=== PATIENT | female | born 1955 | race Caucasian/White ===

== ENCOUNTER 2019-09-15 16:15 | Observation (INO) ==
--- NOTE | 2019-09-15 16:33 | ED.ABDFE ---
HPI - HPI Comment HPI Comment: Patient complains of abdominal pain starting yesterday. Has had diarrhea intermittent for a year with no etiology (DR. Crane Scoped patient upper and lower). NO fever. pain is RLQ. - COVID-19 Coronavirus risk:travel/contact w/high risk person: No Has patient experienced Coronavirus symptoms: No - Nurses notes reviewed Nurses Notes Review: Yes - Source History Provided: Patient - Mode of arrival Mode of Arrival: Ambulatory - Timing Came on: Gradually - Duration Duration: Intermittent Duration: Hours - Location Location: RLQ - Severity Severity: Moderate - Quality Quality: Aching - Context Onset: Gradually - Modifying Worsening Factors: Food - Associated signs and symptoms Associated Signs and Symptoms: Diarrhea - Time seen Time Seen by Provider: 09/15/19 16:32 PMH - PMH Past Medical History: Coronary Artery Disease, Hypertension, Dyslipidemia, Anxiety, COPD, Asthma, Kidney Stones Past Surgical History: Yes Surgical History: Angioplasty/Stents, Cholecystectomy, 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, Other, Thyroidectomy - Family History Family Medical History: Coronary Artery Disease, Hypertension - Social History Do you use any recreational Drugs:: No ROS - Review of Systems Constitutional: No Symptoms Reported Eyes: No Symptoms Reported ENTM: No Symptoms Reported Respiratoy: No Symptoms Reported Cardiovascular: No Symptoms Reported Gastrointestinal/Abdominal: Abdominal Pain (RLQ), Diarrhea Genitourinary: No Symptoms Reported Neurological: No Symptoms Reported Musculoskeletal: No Symptoms Reported Integumentary: No Symptoms Reported Hematologic/Lymphatic: No Symptoms Reported Endocrine: No Symptoms Reported Psychiatric: No Symptoms Reported All Other Systems: Reviewed and Negative PE - General Limitations: No Limitations General Appearance: Alert, In No Apparent Distress - Head Head Exam: Normal Inspection - Eyes Eye exam: Normal Appearance, EOMI - ENT ENT Exam: Normal Exam - Neck Neck Exam: Normal Inspection, Full ROM, Trachea Midline - Chest Chest Inspection: Normal Inspection - Respiratory Respiratory Exam: negative: Respiratory Distress - Abdominal Exam Abdominal Exam: Normal Inspection, Normal Bowel Sounds, Soft, Tenderness (RLQ mild tenderness). negative: Distention, Guarding - Vital Signs Vitals: Temperature 97.3 F Pulse Rate 79 Respiratory Rate 20 Blood Pressure 109/57 O2 Sat by Pulse Oximetry 99 Course - Consultation Called: 19:45 Call Returned: 19:46 Consultation Comments: called and case discussed, admit ROR - Labs Reviewed Result Diagrams: 09/15/19 16:55 09/15/19 16:55 - XRAY XRAY Interpreted by: Radiologist - EKG Rate: 52 [place]: Normal Rhythm: NSR Block: None Hypertrophy: None ST: Normal - Labs Reviewed Laboratory: WBC 12.1 X10^3/uL (3.6-10.0) H 09/15/19 16:55 RBC 4.02 X10^6/uL (3.5-5.4) 09/15/19 16:55 Hgb 11.8 g/dL (12.0-16.0) L 09/15/19 16:55 Hct 36.0 % (36.0-47.0) 09/15/19 16:55 MCV 89.5 fL (80.0-100.0) 09/15/19 16:55 MCH 29.2 pg (27.0-34.0) 09/15/19 16:55 MCHC 32.7 g/dL (33.0-35.0) L 09/15/19 16:55 RDW 13.6 % (11.6-16.5) 09/15/19 16:55 Plt Count 180 X10^3/uL (150.0-450.0) 09/15/19 16:55 MPV 8.7 fL (7.4-11.0) 09/15/19 16:55 Neut % (Auto) 89.2 % (42.0-75.0) H 09/15/19 16:55 Lymph % (Auto) 5.0 % (21.0-51.0) L 09/15/19 16:55 [place] % (Auto) 5.7 % (0.0-13.0) 09/15/19 16:55 Eos % (Auto) 0.0 % (0.9-2.9) L 09/15/19 16:55 Baso % (Auto) 0.1 % (0.2-1.0) L 09/15/19 16:55 Neut # (Auto) 10.8 x10^3/uL (2.2-4.8) H 09/15/19 16:55 Lymph # (Auto) 0.6 X10^3/uL (1.3-2.9) L 09/15/19 16:55 [place] # (Auto) 0.7 x10^3/uL (0.3-0.8) 09/15/19 16:55 Eos # (Auto) 0.0 x10^3/uL (0.0-0.2) 09/15/19 16:55 Baso # (Auto) 0.0 X10^3/uL (0.0-0.1) 09/15/19 16:55 Absolute Nucleated RBC 0.0 /100WBC 09/15/19 16:55 Sodium 141 mmol/L (136-145) 09/15/19 16:55 Corrected Sodium 142 mmol/L (136-145) 09/15/19 16:55 Potassium 4.0 mmol/L (3.5-5.1) 09/15/19 16:55 Chloride 104 mmol/L (98-107) 09/15/19 16:55 Carbon Dioxide 26.8 mmol/L (21-32) 09/15/19 16:55 BUN 16 mg/dL (7-18) 09/15/19 16:55 Creatinine 1.11 mg/dL (0.55-1.02) H 09/15/19 16:55 Est GFR (MDRD) Af Amer > 60 (>60) 09/15/19 16:55 Est GFR (MDRD) Non-Af 53 (>60) L 09/15/19 16:55 Glucose 125 mg/dL (65-99) H 09/15/19 16:55 Calcium 8.5 mg/dL (8.5-10.1) 09/15/19 16:55 Corrected Calcium TNP 09/15/19 16:55 Total Bilirubin 0.60 mg/dL (0.2-1.0) 09/15/19 16:55 AST 33 Units/L (15-37) 09/15/19 16:55 ALT 28 Units/L (12-78) 09/15/19 16:55 Alkaline Phosphatase 80 Units/L (46-116) 09/15/19 16:55 Total Protein 6.9 g/dL (6.4-8.2) 09/15/19 16:55 Albumin 3.8 g/dL (3.4-5.0) 09/15/19 16:55 Globulin 3.1 g/dL (2.5-4.5) 09/15/19 16:55 Albumin/Globulin Ratio 1.2 Ratio (1.1-2.1) 09/15/19 16:55 Lipase 35 Units/L (73-393) L 09/15/19 16:55 Stool for White Cells Negative (NEGATIVE) 09/15/19 17:42 - XRAY Xray Findings: CT ABDO/PELVIS: acute appendicitis (JJ COLEMAN) Opioid - Opioid Risk Tool Age (Jj box if 16-45): No History of Preadolescent Sexual Abuse: No Total: 0 Total Score Risk Category: Low Risk - Diagnosis Discharge Problem: Abdominal pain Qualifiers: Abdominal location: right lower quadrant Qualified Code(s): R10.31 - Right lower quadrant pain Diarrhea Qualifiers: Diarrhea type: unspecified type Qualified Code(s): R19.7 - Diarrhea, unspecified Appendicitis Qualifiers: Appendicitis type: acute appendicitis Acute appendicitis type: unspecified acute appendicitis type Qualified Code(s): K35.80 - Unspecified acute appendicitis - Discharge Plan Condition: Stable
[2019-09-15 17:03] LABS: BASOPHILS % (AUTO) 0.1 % (0.2-1.0); HEMOGLOBIN 11.8 g/dL (12.0-16.0); LYMPHOCYTES # (AUTO) 0.6 X10^3/uL (1.3-2.9); MEAN CORPUSCULAR HEMOGLOBIN 29.2 pg (27.0-34.0); MEAN CORPUSCULAR HGB CONC 32.7 g/dL (33.0-35.0); MEAN CORPUSCULAR VOLUME 89.5 fL (80.0-100.0); MEAN PLATELET VOLUME 8.7 fL (7.4-11.0); MONOCYTES # (AUTO) 0.7 x10^3/uL (0.3-0.8); MONOCYTES % (AUTO) 5.7 % (0.0-13.0); NEUTROPHILS # (AUTO) 10.8 x10^3/uL (2.2-4.8); NEUTROPHILS % (AUTO) 89.2 % (42.0-75.0); PLATELET COUNT 180 X10^3/uL (150.0-450.0); RED BLOOD COUNT 4.02 X10^6/uL (3.5-5.4); RED CELL DISTRIBUTION WIDTH 13.6 % (11.6-16.5); WHITE BLOOD COUNT 12.1 X10^3/uL (3.6-10.0)
[2019-09-15] MEDS ORDERED: NS 500 ML IV 500 ML IV ONE (17:03)
[2019-09-15] MEDS ORDERED: ZOFRAN INJ 4 MG VIAL IVP ONE (17:12)
[2019-09-15] MEDS ORDERED: TORADOL 60 MG VIAL IVP ONE (17:12)
[2019-09-15 17:14] LABS: ALANINE AMINOTRANSFERASE 28 Units/L (12-78); ALBUMIN 3.8 g/dL (3.4-5.0); ALKALINE PHOSPHATASE 80 Units/L (46-116); ASPARTATE AMINO TRANSFERASE 33 Units/L (15-37); BLOOD UREA NITROGEN 16 mg/dL (7-18); CALCIUM 8.5 mg/dL (8.5-10.1); CARBON DIOXIDE 26.8 mmol/L (21-32); CHLORIDE 104 mmol/L (98-107); COR NA(FOR HYPERGLY) 142 mmol/L (136-145); CREATININE 1.11 mg/dL (0.55-1.02); LIPASE 35 Units/L (73-393); SODIUM 141 mmol/L (136-145); TOTAL PROTEIN 6.9 g/dL (6.4-8.2); eGFR NON BLACK RACES 53 (>60)
[2019-09-15] MEDS ORDERED: NS 1000 ML 1,000 ML ONE (17:18)
[2019-09-15] MEDS ORDERED: TORADOL 60 MG VIAL ONE (17:19)
[2019-09-15] MEDS ORDERED: ZOFRAN INJ 4 MG VIAL ONE (17:19)
--- NOTE | 2019-09-15 19:46 | CT ---
History: Abdominal pain.Exam: Non-contrast CT examination of the abdomen & pelvis.Technique: Multiple CT images of the abdomen and pelvis were obtained from the lung bases to the pubic symphysis without the IV administration of contrast. Of note, this CT exam was optimized for renal stone disease and some parenchymal organ abnormalities and vascular abnormalities/injuries cannot be excluded on the basis of this CT exam.Findings:The lung bases are clear. There is a small hiatal hernia. The no heart is normal in size without a pericardial effusion. Noncontrast CT images of the liver, spleen, stomach, and adrenal glands are unremarkable appearance. There is a nonobstructing left inferior pole 6 mm renal stone. The gallbladder is surgically absent. There is a nonobstructing right inferior pole 2 mm renal stone. There is a moderate to large quantity of colonic stool observed. The cecum is in a somewhat unusual location in the mid/lower abdomen on images 11 through 23 of series 5. Additionally, the appendix is abnormally dilated and there is diffuse periappendiceal edema and stranding which extends to involve the base of the cecum, consistent with changes of acute appendicitis. No periappendiceal abscess or fluid collection is seen. There is no evidence for high-grade bowel obstruction or other complicating features. No other acute abdominopelvic abnormality or process is seen, given the limitations of this noncontrast study. No acute fracture or destructive lytic bony lesion is observed. I discussed these findings with the ER physician/ND at the time of this report.Impression:On this exam, the appendix is abnormally dilated (extending from the cecum, inferiorly) and there is diffuse periappendiceal edema and stranding which extends to involve the base of the cecum, consistent with changes of acute appendicitis.The cecum and appendix are in a somewhat atypical location in the midline/lower abdomen on images 11 - 23 of series 5.No periappendiceal abscess or fluid collection is seen. No evidence for high-grade bowel obstruction or other complicating features.Nonobstructing bilateral nephrolithiasis. Small hiatal hernia. Status post cholecystectomy. Moderate amount of stool.Electronically signed by: ELOINA JORDAN III (Sep 15, 2019 19:45:12)
[2019-09-15] MEDS ORDERED: DEMEROL INJ IVP PRN (20:01)
[2019-09-15] MEDS: NS 1000 ML 1,000 ML IV SCH (20:55)
[2019-09-15] MEDS ORDERED: DUONEB 0.5 MG/3 MG (3 mL) NEB PRN (21:17)
[2019-09-15] MEDS ORDERED: NS 100 ML IV 100 ML IV ONE (21:58)
[2019-09-15] MEDS ORDERED: ZOSYN VIAL 3.375 GRAMS IV ONE (21:58)
[2019-09-15] MEDS: ZOSYN VIAL 3.375 GRAMS 3.375 G in NS 100 ML IV + SPIKE MINIBAG* 100 ML IV ONE ×2 (22:07→22:08)
[2019-09-16 00:32] LABS: BILIRUBIN,URINE NEGATIVE (NEGATIVE); BLOOD/HEMOGLOBIN,URINE 1+ (NEGATIVE); GLUCOSE, URINE NEGATIVE (NEGATIVE); KETONES,URINE NEGATIVE (NEGATIVE); LEUKOCYTE ESTERASE ,URINE 3+ (NEGATIVE); NITRITES,URINE NEGATIVE (NEGATIVE); PROTEIN,URINE NEGATIVE (NEGATIVE); UROBILINOGEN,URINE NORMAL (NORMAL)
[2019-09-16 00:43] LABS: APPEARANCE,URINE HAZY (CLEAR); COLOR,URINE YELLOW (YELLOW)
[2019-09-16 00:44] LABS: BACTERIA,URINE NEGATIVE /HPF (NEGATIVE); RBC,URINE 0-2 /HPF (0-3); SQUAMOUS EPITHELIAL CELL,UR RARE /HPF (NEGATIVE)
[2019-09-16 03:01] VITALS: BMI 35.9
[2019-09-16] MEDS ORDERED: NS 100 ML IV 100 ML IV ONE ×2 (05:17→16:05)
[2019-09-16] MEDS ORDERED: ZOSYN VIAL 3.375 GRAMS IV ONE ×2 (05:18→15:51)
[2019-09-16] MEDS: ZOSYN VIAL 3.375 GRAMS 3.375 G in NS 100 ML IV + SPIKE MINIBAG* 100 ML IV SCH ×3 (05:47→21:05)
[2019-09-16 06:44] LABS: BASOPHILS % (AUTO) 0.2 % (0.2-1.0); EOSINOPHILS % (AUTO) 0.8 % (0.9-2.9); HEMATOCRIT 31.8 % (36.0-47.0); HEMOGLOBIN 10.6 g/dL (12.0-16.0); LYMPHOCYTES # (AUTO) 1.2 X10^3/uL (1.3-2.9); LYMPHOCYTES % (AUTO) 18.9 % (21.0-51.0); MEAN CORPUSCULAR HEMOGLOBIN 29.8 pg (27.0-34.0); MEAN CORPUSCULAR HGB CONC 33.4 g/dL (33.0-35.0); MEAN CORPUSCULAR VOLUME 89.3 fL (80.0-100.0); MONOCYTES # (AUTO) 0.4 x10^3/uL (0.3-0.8); NEUTROPHILS # (AUTO) 4.5 x10^3/uL (2.2-4.8); NEUTROPHILS % (AUTO) 73.1 % (42.0-75.0); PLATELET COUNT 126 X10^3/uL (150.0-450.0); RED BLOOD COUNT 3.56 X10^6/uL (3.5-5.4); RED CELL DISTRIBUTION WIDTH 13.4 % (11.6-16.5); WHITE BLOOD COUNT 6.2 X10^3/uL (3.6-10.0)
[2019-09-16 07:04] LABS: ALANINE AMINOTRANSFERASE 23 Units/L (12-78); ALBUMIN 3.2 g/dL (3.4-5.0); ALKALINE PHOSPHATASE 70 Units/L (46-116); ASPARTATE AMINO TRANSFERASE 21 Units/L (15-37); BLOOD UREA NITROGEN 17 mg/dL (7-18); CALCIUM 8.4 mg/dL (8.5-10.1); CARBON DIOXIDE 26.6 mmol/L (21-32); CHLORIDE 107 mmol/L (98-107); CREATININE 1.02 mg/dL (0.55-1.02); SODIUM 141 mmol/L (136-145); TOTAL PROTEIN 6.2 g/dL (6.4-8.2); eGFR NON BLACK RACES 58 (>60)
[2019-09-16] MEDS ORDERED: FENTANYL INJ 250 mcg ONE (09:39)
[2019-09-16] MEDS ORDERED: NORCURON INJ 10 MG VIAL ONE ×2 (09:41→09:43)
[2019-09-16] MEDS ORDERED: BENADRYL INJ 50 MG VIAL IVP PRN (09:54)
[2019-09-16] MEDS ORDERED: ZOFRAN INJ 4 MG VIAL IVP PRN (09:54)
[2019-09-16] MEDS ORDERED: PHENERGAN INJ 25 MG IM PRN (09:54)
[2019-09-16] MEDS ORDERED: REGLAN INJ 10 MG VIAL IVP PRN (09:54)
--- NOTE | 2019-09-16 10:04 | DR.H&P ---
H&P - History & Physical for Day of: H&P Date: 09/15/19 - Chief Complaint Chief Complaint: RIGHT LOWER ABDOMINAL PAIN, N/V - History of Present Illness History of Present Illness: 64 WF ER ADMISSION WITH CO SUDDEN ONSET OF RIGHT LOWER ABDOMINAL PAIN WITH N/V, MARKED TENDERNESS. PT CO LOOSE STOOL FOR GREATER THAN 6 MOS, UNDER CARE OF DR REYES WITH UP TO DAY EGD AND COLONOSCOPY. PT HAS PMH OF CAD, STENT X1 ~5YEARS AGO. PT SEES DR GROSS AND REPORTS ECHO IN MAY WITH EF >60%, RECENT STRESS TEST WITHOUT NEED FOR HEART CATH. PT DENIES ANY HX OF DM. 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, Thyroidectomy, Lithotripsy - Family History Family Medical History: Coronary Artery Disease, Hypertension - Social History Does patient currently use any type of tobacco product: No Have you used tobacco products in the last 12 months: No Type of Tobacco Use: None Does any household member use tobacco: No Alcohol Use: None Drug Use: None - Medications Home Medications: atorvastatin [From Lipitor] Allergy (Verified 09/15/19 20:57) budesonide [From Symbicort] Allergy (Verified 09/15/19 20:57) ciprofloxacin [From Cipro] Allergy (Verified 09/15/19 16:24) formoterol [From Symbicort] Allergy (Verified 09/15/19 20:57) shellfish derived Allergy (Verified 09/15/19 19:13) Sulfa (Sulfonamide Antibiotics) [SULFA] Allergy (Verified 09/15/19 16:24) CONTINUE taking the following medications aspirin [Aspir-Low] 81 mg PO DAILY 09/15/19 [History] citalopram 20 mg PO DAILY 09/15/19 [History] clopidogrel 75 mg PO DAILY 09/15/19 [History] docusate sodium [Colace] 200 mg PO BID PRN 09/15/19 [History] epinephrine [EpiPen 2-Isidoro] 0.3 mg IM Q5-15M PRN 09/15/19 [History] ferrous sulfate 325 mg PO TID 09/15/19 [History] gabapentin 600 mg PO BID 09/15/19 [History] hydrocodone-acetaminophen 1 tab PO Q6H PRN 09/15/19 [History] ipratropium-albuterol 3 ml INHALATION Q4H PRN 09/15/19 [History] isosorbide dinitrate 40 mg PO BID 09/15/19 [History] levothyroxine [Synthroid] 75 mcg PO DAILY 09/15/19 [History] lisinopril 5 mg PO DAILY 09/15/19 [History] loratadine 10 mg PO DAILY 09/15/19 [History] metoprolol tartrate 25 mg PO BID 09/15/19 [History] naproxen 500 mg PO BID PRN 09/15/19 [History] nitroglycerin 0.4 mg SUBLINGUAL PRN PRN 09/15/19 [History] ondansetron 8 mg PO Q8H 09/15/19 [History] pantoprazole 40 mg PO DAILY 09/15/19 [History] ranitidine HCl 300 mg PO QHS 09/15/19 [History] simvastatin 40 mg PO QHS 09/15/19 [History] tizanidine 4 mg PO Q8H PRN 09/15/19 [History] topiramate 100 mg PO BID 09/15/19 [History] trazodone 100 mg PO QHS 09/15/19 [History] - Review of Systems Constitutional: No Symptoms Reported Eyes: No Symptoms Reported ENT: No Symptoms Reported Respiratory: No Symptoms Reported. denies: Cough, Shortness of Breath Gastrointestinal: Nausea, Vomiting, Abdominal Pain, Diarrhea Genitourinary: No Symptoms Reported Musculoskeletal: No Symptoms Reported Skin: No Symptoms Reported Neurological: No Symptoms Reported - Physical Exam Vital Signs: Temperature 98.5 F Pulse Rate [Left Brachial] 66 Pulse Rate 50 Respiratory Rate 18 Blood Pressure [Right Arm] 134/61 Blood Pressure [Left Arm] 105/72 Blood Pressure 105/63 O2 Sat by Pulse Oximetry 98 Oriented: Normal Eyes: Normal Ear: Normal Nose: Normal Throat: Normal Respiratory: Clear Throughout Cardiovascular: Normal : Normal Auscultation: Bowel Sounds: Normal Palpation: Normal Tenderness: RLQ, Severe Skin: Normal Musculoskeletal: Normal Psychiatric: Normal Speech Pattern: Clear, Appropriate - Assessment/Plan (1) Acute appendicitis Status: Acute Plan: ADMIT, NPO. PAIN CONTROL, IV ATBX, SURGICAL CONSULT. EKG, CXR FOR SURGICAL CLEARANCE. OBTAIN LAST ECHO REPORT FROM MAY 2019 (2) Chronic diarrhea Status: Acute (3) CAD (coronary artery disease) Status: Acute - Allergies Allergies/Adverse Reactions: Allergies Allergy/AdvReac Type Severity Reaction Status Date / Time atorvastatin [From Lipitor] Allergy Verified 09/15/19 20:57 budesonide [From Symbicort] Allergy Verified 09/15/19 20:57 ciprofloxacin [From Cipro] Allergy Verified 09/15/19 16:24 formoterol [From Symbicort] Allergy Verified 09/15/19 20:57 shellfish derived Allergy Verified 09/15/19 19:13 Sulfa (Sulfonamide Allergy Verified 09/15/19 16:24 Antibiotics) [SULFA]
--- NOTE | 2019-09-16 10:09 | PCM.PROG ---
Progress Note - Progress Note for Day of Date of Exam: 09/16/19 - Subjective Subjective: PT IS 64 WF, ER ADMISSION LAST PM WITH ACUTE APPENDICITIS WITH DR HINES FOR SURGICAL CONSULT. PT CONTINUE TO HAVE REBOUND TENDERNESS. PT HAD EKG AND CXR THIS AM, ECHO REVIEWED. PT IS MEDICALLY CLEAR FOR APPENDECTOMY THIS AM. PT WBC IMPROVING TO 6.1, HGB STABLE. WILL CONTINUE NPO STATUS - Past Medical Family Social History Past Med/Fam/Surg Hx: No changes since H&P Allergies: Allergies atorvastatin [From Lipitor] Allergy (Verified 09/15/19 20:57) budesonide [From Symbicort] Allergy (Verified 09/15/19 20:57) ciprofloxacin [From Cipro] Allergy (Verified 09/15/19 16:24) formoterol [From Symbicort] Allergy (Verified 09/15/19 20:57) shellfish derived Allergy (Verified 09/15/19 19:13) Sulfa (Sulfonamide Antibiotics) [SULFA] Allergy (Verified 09/15/19 16:24) - Review of Systems ROS: No change since H&P - Vital Signs and I&O's Vital Signs: Temperature 98.5 F Pulse Rate [Left Brachial] 66 Pulse Rate 50 Respiratory Rate 18 Blood Pressure [Right Arm] 134/61 Blood Pressure [Left Arm] 105/72 Blood Pressure 105/63 O2 Sat by Pulse Oximetry 98 Intake and Output: Intake & Output 09/13/19 09/14/19 09/15/19 09/16/19 11:59 11:59 11:59 11:59 Intake Total 590 / 590 Balance 590 / 590 - Physical Exam Oriented: Normal Eyes: Normal Ear: Normal Nose: Normal Throat: Normal Cardiovascular: Normal : Normal Auscultation: Bowel Sounds: Normal Tenderness: RLQ, Severe Skin: Normal Musculoskeletal: Normal Psychiatric: Normal Speech Pattern: Clear, Appropriate - Laboratory and Diagnostics Result Diagrams: 09/16/19 05:00 09/16/19 05:00 Labs: Laboratory WBC 6.2 X10^3/uL (3.6-10.0) 09/16/19 05:00 RBC 3.56 X10^6/uL (3.5-5.4) 09/16/19 05:00 Hgb 10.6 g/dL (12.0-16.0) L 09/16/19 05:00 Hct 31.8 % (36.0-47.0) L 09/16/19 05:00 MCV 89.3 fL (80.0-100.0) 09/16/19 05:00 MCH 29.8 pg (27.0-34.0) 09/16/19 05:00 MCHC 33.4 g/dL (33.0-35.0) 09/16/19 05:00 RDW 13.4 % (11.6-16.5) 09/16/19 05:00 Plt Count 126 X10^3/uL (150.0-450.0) L 09/16/19 05:00 MPV 9.0 fL (7.4-11.0) 09/16/19 05:00 Neut % (Auto) 73.1 % (42.0-75.0) 09/16/19 05:00 Lymph % (Auto) 18.9 % (21.0-51.0) L 09/16/19 05:00 [place] % (Auto) 7.0 % (0.0-13.0) 09/16/19 05:00 Eos % (Auto) 0.8 % (0.9-2.9) L 09/16/19 05:00 Baso % (Auto) 0.2 % (0.2-1.0) 09/16/19 05:00 Neut # (Auto) 4.5 x10^3/uL (2.2-4.8) 09/16/19 05:00 Lymph # (Auto) 1.2 X10^3/uL (1.3-2.9) L 09/16/19 05:00 [place] # (Auto) 0.4 x10^3/uL (0.3-0.8) 09/16/19 05:00 Eos # (Auto) 0.0 x10^3/uL (0.0-0.2) 09/16/19 05:00 Baso # (Auto) 0.0 X10^3/uL (0.0-0.1) 09/16/19 05:00 Absolute Nucleated RBC 0.0 /100WBC 09/16/19 05:00 Sodium 141 mmol/L (136-145) 09/16/19 05:00 Corrected Sodium TNP 09/16/19 05:00 Potassium 3.4 mmol/L (3.5-5.1) L 09/16/19 05:00 Chloride 107 mmol/L (98-107) 09/16/19 05:00 Carbon Dioxide 26.6 mmol/L (21-32) 09/16/19 05:00 BUN 17 mg/dL (7-18) 09/16/19 05:00 Creatinine 1.02 mg/dL (0.55-1.02) 09/16/19 05:00 Est GFR (MDRD) Af Amer > 60 (>60) 09/16/19 05:00 Est GFR (MDRD) Non-Af 58 (>60) L 09/16/19 05:00 Glucose 91 mg/dL (65-99) 09/16/19 05:00 Calcium 8.4 mg/dL (8.5-10.1) L 09/16/19 05:00 Corrected Calcium 9.0 mg/dL (8.5-10.1) 09/16/19 05:00 Total Bilirubin 1.00 mg/dL (0.2-1.0) 09/16/19 05:00 AST 21 Units/L (15-37) 09/16/19 05:00 ALT 23 Units/L (12-78) 09/16/19 05:00 Alkaline Phosphatase 70 Units/L (46-116) 09/16/19 05:00 Total Protein 6.2 g/dL (6.4-8.2) L 09/16/19 05:00 Albumin 3.2 g/dL (3.4-5.0) L 09/16/19 05:00 Globulin 3.0 g/dL (2.5-4.5) 09/16/19 05:00 Albumin/Globulin Ratio 1.1 Ratio (1.1-2.1) 09/16/19 05:00 Lipase 35 Units/L (73-393) L 09/15/19 16:55 Specimen Type Clean catch urine 09/16/19 00:07 Urine Color Yellow (YELLOW) 09/16/19 00:07 Urine Appearance Hazy (CLEAR) 09/16/19 00:07 Urine pH 6.0 (5.0 - 8.0) 09/16/19 00:07 Ur Specific [place] 1.010 (1.000-1.030) 09/16/19 00:07 Urine Protein Negative (NEGATIVE) 09/16/19 00:07 Urine Glucose (UA) Negative (NEGATIVE) 09/16/19 00:07 Urine Ketones Negative (NEGATIVE) 09/16/19 00:07 Urine Occult Blood 1+ (NEGATIVE) 09/16/19 00:07 Urine Nitrite Negative (NEGATIVE) 09/16/19 00:07 Urine Bilirubin Negative (NEGATIVE) 09/16/19 00:07 Urine Urobilinogen Normal (NORMAL) 09/16/19 00:07 Ur Leukocyte Esterase 3+ (NEGATIVE) 09/16/19 00:07 Urine RBC 0-2 /HPF (0-3) 09/16/19 00:07 Urine WBC 0-2 /HPF (0-5) 09/16/19 00:07 Ur Squamous Epith Cells Rare /HPF (NEGATIVE) 09/16/19 00:07 Urine Bacteria Negative /HPF (NEGATIVE) 09/16/19 00:07 Ur Culture Indicated? No/not indicated 09/16/19 00:07 Stool for White Cells Negative (NEGATIVE) 09/15/19 17:42 - Plan (1) Acute appendicitis Status: Acute Plan: NPO. PAIN CONTROL, IV ATBX, SURGICAL CONSULT. EKG, CXR FOR SURGICAL CLEARANCE. OBTAIN LAST ECHO REPORT FROM MAY 2019 AND REVIEWED WITH NORMAL EF (2) Chronic diarrhea Status: Acute (3) CAD (coronary artery disease) Status: Acute
[2019-09-16] MEDS ORDERED: DIPRIVAN VIAL ONE (10:58)
[2019-09-16] MEDS ORDERED: ZOFRAN INJ 4 MG VIAL ONE ×2 (10:58→11:30)
[2019-09-16] MEDS ORDERED: ZEMURON 100 MG VIAL ONE (10:58)
[2019-09-16] MEDS ORDERED: VERSED ONE (10:58)
[2019-09-16] MEDS ORDERED: BACTROBAN TOPICAL OINT ONE (11:05)
[2019-09-16] MEDS ORDERED: DILAUDID INJ ONE (11:30)
--- NOTE | 2019-09-16 11:30 | OR.IMMED ---
Immediate Post-Op Note - Immediate Post-Op Note Pre-Op Diagnosis: acute appendicitis Post-Op Diagnosis: acute appendicitis . 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 abdominal adhesions . Procedure: lap appendectomy . lysis of abdominal adhesions . Surgeon/Sewing Machine Mechanic: Franck Estimated Blood Loss: 20 cc Drains: NONE Condition: Stable (same IV ATB , IVF and DVT prophylaxis)
[2019-09-16] MEDS: DILAUDID INJ IVP PRN ×3 (11:35→18:10)
[2019-09-16] MEDS ORDERED: NS 1000 ML 1,000 ML ONE (11:46)
[2019-09-16] MEDS: NS 1000 ML 1,000 ML IV SCH (11:47)
[2019-09-16] MEDS: D5 1/2 NS 1000 ML 1,000 ML IV SCH ×2 (12:45→20:57)
--- NOTE | 2019-09-16 14:10 | RAD ---
HISTORYhx cad, htnSTUDYCHEST, 1 VIEWCOMPARISONNoneFINDINGSThe trachea is midline. The cardiac silhouette is enlarged. Interstitial changes and bronchial wall thickening are noted. Patchy left perihilar and left basilar infiltrate cannot be excluded. Correlate clinically.IMPRESSIONCardiomegaly.Interstitial changes with questionable patchy infiltrate within the left lung as noted above.Electronically signed by: MONICA TALAMANTES (Sep 16, 2019 14:09:20)
[2019-09-16] MEDS ORDERED: CHLORASEPTIC SPRAY MT PRN (16:00)
[2019-09-16] MEDS: PROTONIX INJ 40 MG VIAL IVP SCH (18:39)
[2019-09-17] MEDS: D5 1/2 NS 1000 ML 1,000 ML IV SCH ×2 (01:46→04:24)
[2019-09-17] MEDS ORDERED: NS 100 ML IV 100 ML IV ONE (05:27)
[2019-09-17] MEDS ORDERED: ZOSYN VIAL 3.375 GRAMS IV ONE (05:27)
[2019-09-17] MEDS: DILAUDID INJ IVP PRN (06:11)
[2019-09-17] MEDS: ZOSYN VIAL 3.375 GRAMS 3.375 G in NS 100 ML IV + SPIKE MINIBAG* 100 ML IV SCH (06:11)
[2019-09-17 06:32] LABS: BASOPHILS % (AUTO) 0.3 % (0.2-1.0); EOSINOPHILS # (AUTO) 0.1 x10^3/uL (0.0-0.2); EOSINOPHILS % (AUTO) 2.3 % (0.9-2.9); HEMATOCRIT 29.8 % (36.0-47.0); HEMOGLOBIN 10.2 g/dL (12.0-16.0); LYMPHOCYTES % (AUTO) 17.5 % (21.0-51.0); MEAN CORPUSCULAR HEMOGLOBIN 30.2 pg (27.0-34.0); MEAN CORPUSCULAR VOLUME 88.7 fL (80.0-100.0); MEAN PLATELET VOLUME 8.8 fL (7.4-11.0); MONOCYTES # (AUTO) 0.5 x10^3/uL (0.3-0.8); MONOCYTES % (AUTO) 8.7 % (0.0-13.0); NEUTROPHILS # (AUTO) 4.1 x10^3/uL (2.2-4.8); NEUTROPHILS % (AUTO) 71.2 % (42.0-75.0); PLATELET COUNT 125 X10^3/uL (150.0-450.0); RED BLOOD COUNT 3.36 X10^6/uL (3.5-5.4); RED CELL DISTRIBUTION WIDTH 13.4 % (11.6-16.5); WHITE BLOOD COUNT 5.7 X10^3/uL (3.6-10.0)
[2019-09-17 06:51] LABS: ALANINE AMINOTRANSFERASE 16 Units/L (12-78); ALBUMIN 2.9 g/dL (3.4-5.0); ALKALINE PHOSPHATASE 69 Units/L (46-116); ASPARTATE AMINO TRANSFERASE 14 Units/L (15-37); BLOOD UREA NITROGEN 12 mg/dL (7-18); CALCIUM 8.1 mg/dL (8.5-10.1); CARBON DIOXIDE 25.1 mmol/L (21-32); CHLORIDE 108 mmol/L (98-107); SODIUM 140 mmol/L (136-145); TOTAL PROTEIN 5.9 g/dL (6.4-8.2); eGFR NON BLACK RACES > 60 (>60)
[2019-09-17] MEDS ORDERED: LOVENOX INJ 40 MG SYR SC SCH (09:00)
[2019-09-17] MEDS: PROTONIX INJ 40 MG VIAL IVP SCH (09:07)
[2019-09-17 09:18] VITALS: BP 131/61
== END 2019-09-17 11:45 | disposition home or self-care (01) ==
LOC: MED/SURG 16:23 → ER 16:23 → MED/SURG 21:02
PROVIDERS: ADMIT Surgery; ATTEND Surgery
PROC: APPYLAP (ICD-10-PCS; 2019-09-16 09:45)
DX: K35.890 Other acute appendicitis without perforation or gangrene; I25.10 Atherosclerotic heart disease of native coronary artery without angina pectoris; R19.7 Diarrhea, unspecified; E78.2 Mixed hyperlipidemia; K21.9 Gastro-esophageal reflux disease without esophagitis; R10.31 Right lower quadrant pain; K44.9 Diaphragmatic hernia without obstruction or gangrene; D72.828 Other elevated white blood cell count; J44.9 Chronic obstructive pulmonary disease, unspecified; Z79.899 Other long term (current) drug therapy

== ENCOUNTER 2021-02-10 14:59 | Inpatient (IN) ==
[2021-02-10 16:27] VITALS: BMI 43.7
[2021-02-10] MEDS ORDERED: ZOFRAN INJ 4 MG VIAL IVP PRN (16:27)
[2021-02-10] MEDS ORDERED: NS 1000 ML 1,000 ML ONE (16:43)
[2021-02-10] MEDS ORDERED: NORCO 7.5/325 MG TAB ONE (16:43)
[2021-02-10] MEDS ORDERED: PLAVIX ONE (16:43)
[2021-02-10] MEDS ORDERED: CELEXA ONE (16:43)
[2021-02-10] MEDS ORDERED: PROTONIX INJ 40 MG VIAL ONE (16:44)
[2021-02-10 16:59] LABS: BASOPHILS % (AUTO) 0.3 % (0.2-1.0); EOSINOPHILS # (AUTO) 0.1 x10^3/uL (0.0-0.2); EOSINOPHILS % (AUTO) 1.4 % (0.9-2.9); HEMOGLOBIN 12.4 g/dL (12.0-16.0); LYMPHOCYTES # (AUTO) 0.9 X10^3/uL (1.3-2.9); LYMPHOCYTES % (AUTO) 10.3 % (21.0-51.0); MEAN CORPUSCULAR HEMOGLOBIN 28.8 pg (27.0-34.0); MEAN CORPUSCULAR HGB CONC 33.5 g/dL (33.0-35.0); MEAN CORPUSCULAR VOLUME 85.9 fL (80.0-100.0); MEAN PLATELET VOLUME 8.3 fL (7.4-11.0); MONOCYTES # (AUTO) 0.6 x10^3/uL (0.3-0.8); MONOCYTES % (AUTO) 7.2 % (0.0-13.0); NEUTROPHILS # (AUTO) 6.8 x10^3/uL (2.2-4.8); NEUTROPHILS % (AUTO) 80.8 % (42.0-75.0); PLATELET COUNT 208 X10^3/uL (150.0-450.0); RED BLOOD COUNT 4.31 X10^6/uL (3.5-5.4); WHITE BLOOD COUNT 8.4 X10^3/uL (3.6-10.0)
[2021-02-10] MEDS ORDERED: PHARMACY CONSULT - VANCOMYCIN XX SCH (17:00)
[2021-02-10 17:02] LABS: ERYTHROCYTE SEDIMENTATION RATE 82 MM/HOUR (0-20)
[2021-02-10 17:08] LABS: ALANINE AMINOTRANSFERASE 19 Units/L (12-78); ALBUMIN 3.7 g/dL (3.4-5.0); ALKALINE PHOSPHATASE 103 Units/L (46-116); ASPARTATE AMINO TRANSFERASE 15 Units/L (15-37); BLOOD UREA NITROGEN 11 mg/dL (7-18); CALCIUM 8.8 mg/dL (8.5-10.1); CARBON DIOXIDE 24.5 mmol/L (21-32); CHLORIDE 99 mmol/L (98-107); COR NA(FOR HYPERGLY) 138 mmol/L (136-145); CREATININE 1.18 mg/dL (0.55-1.02); SODIUM 136 mmol/L (136-145); TOTAL PROTEIN 8.2 g/dL (6.4-8.2); URIC ACID 5.6 mg/dL (2.6-6.0); eGFR NON BLACK RACES 49 (>60)
--- NOTE | 2021-02-10 17:09 | VAS ---
HISTORYLLE CELLULITIS, PAIN AND EDEMASTUDYLOWER EXT VENOUS, UNILATERALCOMPARISONNo relevant prior studies available.TECHNIQUEGrayscale and color Doppler images of the left lower extremity.FINDINGSCommon femoral, femoral and popliteal veins demonstrate normal compressibility, color Doppler flow, waveforms and augmentation with no filling defects.Soft tissues: UnremarkableIMPRESSIONNo evidence of deep venous thrombus.Electronically signed by: Amadou Hernandez (Feb 10, 2021 17:06:58)
[2021-02-10 17:14] LABS: LACTIC ACID 2.5 mmol/L (0.4-2.0)
[2021-02-10] MEDS ORDERED: VANCOMYCIN IV *PREMIX 1.25 G/250 ML BAG 1.25 G/250 ML PIGGYBACK IV ONE ×2 (18:00→18:16)
[2021-02-10] MEDS: PLAVIX PO SCH (18:02)
[2021-02-10] MEDS: PROTONIX INJ 40 MG VIAL IVP SCH (18:02)
[2021-02-10] MEDS: NS 1000 ML 1,000 ML IV SCH (18:02)
[2021-02-10] MEDS: CELEXA PO SCH (18:02)
[2021-02-10] MEDS: NORCO 7.5/325 MG TAB PO PRN (18:03)
[2021-02-10] MEDS ORDERED: DUONEB 0.5 MG/3 MG (3 mL) NEB PRN (21:00)
[2021-02-10] MEDS: COLACE CAP 100 MG PO SCH (21:05)
[2021-02-11] MEDS: NORCO 7.5/325 MG TAB PO PRN (01:01)
[2021-02-11 04:36] LABS: BASOPHILS % (AUTO) 0.3 % (0.2-1.0); EOSINOPHILS # (AUTO) 0.2 x10^3/uL (0.0-0.2); EOSINOPHILS % (AUTO) 3.2 % (0.9-2.9); HEMATOCRIT 28.7 % (36.0-47.0); LYMPHOCYTES # (AUTO) 1.6 X10^3/uL (1.3-2.9); LYMPHOCYTES % (AUTO) 25.3 % (21.0-51.0); MEAN CORPUSCULAR HEMOGLOBIN 28.9 pg (27.0-34.0); MEAN CORPUSCULAR HGB CONC 33.9 g/dL (33.0-35.0); MEAN CORPUSCULAR VOLUME 85.2 fL (80.0-100.0); MEAN PLATELET VOLUME 8.2 fL (7.4-11.0); MONOCYTES # (AUTO) 0.7 x10^3/uL (0.3-0.8); MONOCYTES % (AUTO) 11.5 % (0.0-13.0); NEUTROPHILS # (AUTO) 3.7 x10^3/uL (2.2-4.8); NEUTROPHILS % (AUTO) 59.7 % (42.0-75.0); PLATELET COUNT 178 X10^3/uL (150.0-450.0); RED BLOOD COUNT 3.37 X10^6/uL (3.5-5.4); RED CELL DISTRIBUTION WIDTH 13.9 % (11.6-16.5); WHITE BLOOD COUNT 6.2 X10^3/uL (3.6-10.0)
[2021-02-11 05:02] LABS: HEMOGLOBIN 9.7 g/dL (12.0-16.0)
[2021-02-11 05:03] LABS: ERYTHROCYTE SEDIMENTATION RATE 41 MM/HOUR (0-20)
[2021-02-11] MEDS ORDERED: POTASSIUM CHLORIDE LIQ 20 MEQ UDC PO PRN (07:53)
[2021-02-11] MEDS ORDERED: MICRO K EXTEN CAP 10 MEQ PO PRN (07:53)
[2021-02-11] MEDS ORDERED: POTASSIUM CHL 60 MEQ/NS 0.45% 500 ML IV PRN (07:53)
[2021-02-11] MEDS ORDERED: POTASSIUM CHL 40 MEQ/NS 0.45% 500 ML IV PRN (07:53)
[2021-02-11] MEDS ORDERED: K-DUR TAB 20 MEQ PO PRN (07:53)
[2021-02-11] MEDS ORDERED: K-RIDER 10 MEQ/NS 100 ML 10 MEQ/100 ML BAG IV PRN (07:53)
[2021-02-11] MEDS ORDERED: KLOR-CON PO PRN (07:53)
[2021-02-11] MEDS: NS 1000 ML 1,000 ML IV SCH ×3 (08:21→22:12)
[2021-02-11 08:25] LABS: BILIRUBIN,URINE NEGATIVE (NEGATIVE); BLOOD/HEMOGLOBIN,URINE 1+ (NEGATIVE); GLUCOSE, URINE NEGATIVE (NEGATIVE); KETONES,URINE NEGATIVE (NEGATIVE); LEUKOCYTE ESTERASE ,URINE NEGATIVE (NEGATIVE); NITRITES,URINE NEGATIVE (NEGATIVE); PROTEIN,URINE 1+ (NEGATIVE); UROBILINOGEN,URINE NORMAL (NORMAL)
[2021-02-11 08:34] LABS: APPEARANCE,URINE CLEAR (CLEAR); COLOR,URINE YELLOW (YELLOW)
[2021-02-11] MEDS ORDERED: LASIX PO PRN (08:36)
[2021-02-11 08:38] LABS: AMORPHOUS SEDIMENT,UR 1+ /HPF (NEGATIVE); BACTERIA,URINE TRACE /HPF (NEGATIVE); GRANULAR CASTS,URINE RARE /LPF (NEGATIVE); HYALINE CASTS, URINE RARE /LPF (NEGATIVE); SQUAMOUS EPITHELIAL CELL,UR MODERATE /HPF (NEGATIVE)
[2021-02-11] MEDS: CELEXA PO SCH (08:43)
[2021-02-11] MEDS: PLAVIX PO SCH (08:43)
[2021-02-11] MEDS: PROTONIX INJ 40 MG VIAL IVP SCH (08:44)
[2021-02-11] MEDS: VANCOMYCIN IV *PREMIX 1.25 G/250 ML BAG 1.25 G/250 ML PIGGYBACK IV SCH ×2 (08:44→22:11)
[2021-02-11] MEDS: SYNTHROID 75 mcg TAB PO SCH (09:14)
--- NOTE | 2021-02-11 09:53 | CT ---
HISTORYLEFT LOWER LEG/ANKLE PAIN AND SWELLING X 5 DAYS, NO TRAUMASTUDYCT left lower leg without IV contrastCOMPARISONX-ray 02/09/2021TECHNIQUEMultiple axial images of the left lower leg, ankle and foot are obtained without the administration of IV contrast. Dose reduction techniques including Automated Exposure Control (AEC) and adjustment of mA and kV were utilized.FINDINGSSubcutaneous edema is seen in the lower leg, ankle, and foot. Edema is greatest in the ankle and dorsum of the foot. No focal fluid collection is seen. No bone destruction or fracture is seen. No evidence of dislocation. No muscular edema is seen in the lower leg.IMPRESSIONDiffuse edema is greatest in the ankle. This could be bland edema or cellulitis.No focal fluid collection or acute bony abnormality is seen.Electronically signed by: Rk Giraldo (Feb 11, 2021 09:50:59)
[2021-02-11 10:10] LABS: ABG BASE EXCESS 0.7 mmol/L (-2.0-2.0); ABG HCO3 25.4 mmol/L (22-26)
--- NOTE | 2021-02-11 10:40 | RAD ---
HISTORYHYPOXIASTUDYCHEST x-ray, 1 VIEWCOMPARISONCTA chest 12/08/2020FINDINGSThe trachea is midline. The cardiac silhouette is mildly enlarged with pulmonary venous congestion suggesting CHF.Lungs appear clear. Probable mild COPD. No pneumothorax or pleural effusion is seen.No acute bony abnormality is seen.IMPRESSIONPossible mild CHF without pulmonary edema.Electronically signed by: Rk Giraldo (Feb 11, 2021 10:39:04)
[2021-02-11] MEDS: ASPIRIN EC 81 MG PO SCH (10:43)
[2021-02-11] MEDS: LOVENOX INJ 40 MG SYR SC SCH ×2 (10:43→22:15)
[2021-02-11] MEDS: ZOCOR TAB 40 MG PO SCH ×2 (10:43→22:11)
[2021-02-11] MEDS: LOPRESSOR TAB 25 MG PO SCH ×2 (10:43→22:09)
[2021-02-11] MEDS: DESYREL PO SCH ×2 (10:43→22:09)
[2021-02-11] MEDS: NEURONTIN TAB 600 MG PO SCH ×2 (10:43→22:10)
[2021-02-11] MEDS: MAGNESIUM SULFATE 1 GRAM/100 mL PREMIX 1 GM/100 ML BAG IV PRN ×2 (13:02→16:03)
[2021-02-11 14:10] LABS: CRYPTOSPORIDIUM PARVUM ANTIGEN NEGATIVE (NEGATIVE); GIARDIA LAMBLIA ANTIGEN NEGATIVE (NEGATIVE)
[2021-02-11] MEDS: NORCO 10/325 TAB PO PRN (16:01)
--- NOTE | 2021-02-11 18:16 | DR.H&P ---
H&P - History & Physical for Day of: H&P Date: 02/10/21 - Chief Complaint Chief Complaint: LEFT LEG PAIN, REDNESS AND SWELLING, FEVER - History of Present Illness History of Present Illness: PT IS 65 WF DIRECT ADMIT FROM DR KEITH OFFICE WIT H CO LEFT LOWER LEG SWELLING WITH INCREASED PAIN AND REDNESS. PT HAS HAD NEGATIVE US 3 WEEKS AGO AND COMPLETED DOXYCYLINE AND KEFLEX SINCE ONSET WITHOUT IMPROVEMENT. SWELLING WORSENED AND ONSET OF INCREASED REDNESS AND PAIN OVER THIS PAST WEEKEND. PT TESTED NEGATIVE FOR COVID 2 TIMES THIS PAST WEEK AND NEGATIVE FOR FLU. PT DENIES ANY RESPIRATORY SYMPTOMS LIKE CCC. PT HAD FEVER 102.3 IN OFFICE. PT ADMITTED FOR TREATMENT OF ACUTE ILLNESS. - Past Medical History Past Medical History: Anemia, Anxiety, Asthma, CHF, COPD, Coronary Artery Disease, Depression, Dyslipidemia, Gout, Hypertension, Kidney Stones - Past Surgical History Surgical History: Angioplasty/Stents, Cholecystectomy, [employer] Surgery, Thyroidectomy, Lithotripsy - Family History Family Medical History: Coronary Artery Disease, Hypertension - Social History Does patient currently use any type of tobacco product: No Have you used tobacco products in the last 12 months: No Type of Tobacco Use: None Does any household member use tobacco: No Alcohol Use: None Drug Use: None Prescription drug monitoring program results: PDMP reviewed and no concerns identified - Medications Home Medications: atorvastatin [From Lipitor] Allergy (Verified 09/15/19 20:57) budesonide [From Symbicort] Allergy (Verified 09/15/19 20:57) ciprofloxacin [From Cipro] Allergy (Verified 09/15/19 16:24) formoterol [From Symbicort] Allergy (Verified 09/15/19 20:57) shellfish derived Allergy (Verified 09/15/19 19:13) Sulfa (Sulfonamide Antibiotics) [SULFA] Allergy (Verified 09/15/19 16:24) CONTINUE taking the following medications ascorbic acid (vitamin C) [Vitamin C] 1 g PO DAILY 02/10/21 [History] biotin 5,000 mcg SUBLINGUAL ONCE 02/10/21 [History] cholecalciferol (vitamin D3) [Vitamin D3] 25 mcg PO ONCE 02/10/21 [History] diclofenac sodium TOPICAL 02/10/21 [History] famotidine 40 mg PO QHS 02/10/21 [History] folic acid 1 mg PO DAILY 02/10/21 [History] furosemide 40 mg PO DAILY PRN 02/10/21 [History] garlic 1,000 mg PO QPC 02/10/21 [History] hydrocodone-acetaminophen 1 tab PO DAILY PRN 02/10/21 [History] magnesium oxide 400 mg PO DAILY 02/10/21 [History] potassium chloride 20 meq PO DAILY PRN 02/10/21 [History] promethazine 25 mg PO BID PRN 02/10/21 [History] pyridoxine (vitamin B6) [Vitamin B-6] 100 mg PO ONCE 02/10/21 [History] vitamin B complex 1 cap PO ONCE 02/10/21 [History] zinc 50 mg PO DAILY 02/10/21 [History] - Review of Systems Constitutional: Fever, Chills, Weakness, Malaise Eyes: No Symptoms Reported ENT: No Symptoms Reported Respiratory: SOB with Excertion Cardiovascular: Edema Gastrointestinal: Nausea, Diarrhea Genitourinary: No Symptoms Reported Musculoskeletal: Back Pain, Leg Pain Skin: Other (REDNESS TO LLE) Neurological: Weakness - Physical Exam Vital Signs: Temperature 98.1 F Pulse Rate [Left Radial] 58 Respiratory Rate 18 Blood Pressure [Right Arm] 144/65 O2 Sat by Pulse Oximetry 99 Oriented: Normal Eyes: Normal Ear: Normal Nose: Normal Throat: Normal Respiratory: RLL Diminished, LLL Diminished Cardiovascular: Normal, Edema : Normal Auscultation: Bowel Sounds: Normal Palpation: Normal Tenderness: Normal Skin: Decreased Turgur, Red, Tender, Hot (LLE) Musculoskeletal: Left, Leg, Back:Thoracic, Swelling, Tender Psychiatric: Anxiety Affect: Anxious Speech Pattern: Clear, Appropriate - Assessment/Plan (1) Cellulitis of left lower extremity Status: Acute Plan: ADMIT, BC ON ADMISSION. IV ATBX VANCOMYCIN, ADMISSION LABS. BP CONTROL, STRICT I&OS, GENTLE IV HYDRATION. PAIN CONTROL, BP MONITORING, VERIFY HOME MEDICATION. STOOL STUDIES, VENOUS US RO DVT. LOVENOX THERAPY (2) Sepsis Status: Acute (3) Fever Status: Acute (4) Diarrhea Qualifiers: Diarrhea type: unspecified type Qualified Code(s): R19.7 - Diarrhea, unspecified Status: Acute (5) CAD (coronary artery disease) Status: Acute - Allergies Allergies/Adverse Reactions: Allergies Allergy/AdvReac Type Severity Reaction Status Date / Time atorvastatin [From Lipitor] Allergy Verified 09/15/19 20:57 budesonide [From Symbicort] Allergy Verified 09/15/19 20:57 ciprofloxacin [From Cipro] Allergy Verified 09/15/19 16:24 formoterol [From Symbicort] Allergy Verified 09/15/19 20:57 shellfish derived Allergy Verified 09/15/19 19:13 Sulfa (Sulfonamide Allergy Verified 09/15/19 16:24 Antibiotics) [SULFA]
--- NOTE | 2021-02-11 18:28 | PCM.PROG ---
Progress Note - Progress Note for Day of Date of Exam: 02/11/21 - Subjective Subjective: PT IS 65 WF DIRECT ADMIT FROM DR KEITH OFFICE WITH ACUTE LLE CELLULITIS AND FEBRILE ILLNESS, SEPSIS WITH ELEVATED CRP AND LACTIC ACID ON ADMISSION. PT WAS STARTED ON IV VANCOMYCIN ON ADMISSION, LLE US NEGATIVE FOR DVT. PT ON LOVENOX PROPHYLAXIS. PT HAD MILD IMPROVEMENT IN LLE REDNESS AND S WELLING THIS MORNING BUT CONTINUED PAIN NOT CONTROLLED WITH PO NORCO 7.5. NURSING STAFF REPORTS TO HAD HYPOXIA DURING THE NIGHT, WITH O2 SAT 78 %. PT HAS HX CRYSTAL AND PLACED ON CPAP WITH STABLE O2 SATURATION THIS AM. WILL OBTAIN ROOM AIR ABG AND CHEST XRAY. HOME MEDICATIONS RESUMED. CT OF LLE ORDERED TO RO OSTEOMYELITIS. RENAL FUNCTION STABLE, WILL ADD LASIX WITH POTASSIUM REPLACMENT AND REPEAT AM LABS. PT DENIES ANY CHEST PAIN THIS AM. STOOL STUDIES PENDING COLLECTION. - Past Medical Family Social History Past Med/Fam/Surg Hx: No changes since H&P Allergies: Allergies atorvastatin [From Lipitor] Allergy (Verified 09/15/19 20:57) budesonide [From Symbicort] Allergy (Verified 09/15/19 20:57) ciprofloxacin [From Cipro] Allergy (Verified 09/15/19 16:24) formoterol [From Symbicort] Allergy (Verified 09/15/19 20:57) shellfish derived Allergy (Verified 09/15/19 19:13) Sulfa (Sulfonamide Antibiotics) [SULFA] Allergy (Verified 09/15/19 16:24) - Review of Systems ROS: No change since H&P - Vital Signs and I&O's Vital Signs: Temperature 98.1 F Pulse Rate [Left Radial] 58 Respiratory Rate 18 Blood Pressure [Right Arm] 144/65 O2 Sat by Pulse Oximetry 99 Intake and Output: Intake & Output 02/09/21 02/10/21 02/11/21 02/12/21 11:59 11:59 11:59 11:59 Intake Total 1434 / 1434 1050 / 1050 Balance 1434 / 1434 1050 / 1050 - Physical Exam Oriented: Normal Eyes: Normal Ear: Normal Nose: Normal Throat: Normal Respiratory: Diminished Cardiovascular: Normal, Edema : Normal Auscultation: Bowel Sounds: Normal Tenderness: Normal Skin: Decreased Turgur, Red, Tender, Hot (LLE) Musculoskeletal: Left, Leg, Back:Thoracic, Swelling, Tender Psychiatric: Anxiety Affect: Anxious Speech Pattern: Clear, Appropriate - Laboratory and Diagnostics Result Diagrams: 02/11/21 04:03 02/10/21 16:12 Labs: 02/11/21 12:30 Stool - Final Laboratory WBC 6.2 X10^3/uL (3.6-10.0) 02/11/21 04:03 RBC 3.37 X10^6/uL (3.5-5.4) L 02/11/21 04:03 Hgb 9.7 g/dL (12.0-16.0) L D 02/11/21 04:03 Hct 28.7 % (36.0-47.0) L 02/11/21 04:03 MCV 85.2 fL (80.0-100.0) 02/11/21 04:03 MCH 28.9 pg (27.0-34.0) 02/11/21 04:03 MCHC 33.9 g/dL (33.0-35.0) 02/11/21 04:03 RDW 13.9 % (11.6-16.5) 02/11/21 04:03 Plt Count 178 X10^3/uL (150.0-450.0) 02/11/21 04:03 MPV 8.2 fL (7.4-11.0) 02/11/21 04:03 Neut % (Auto) 59.7 % (42.0-75.0) 02/11/21 04:03 Lymph % (Auto) 25.3 % (21.0-51.0) 02/11/21 04:03 [place] % (Auto) 11.5 % (0.0-13.0) 02/11/21 04:03 Eos % (Auto) 3.2 % (0.9-2.9) H 02/11/21 04:03 Baso % (Auto) 0.3 % (0.2-1.0) 02/11/21 04:03 Neut # (Auto) 3.7 x10^3/uL (2.2-4.8) 02/11/21 04:03 Lymph # (Auto) 1.6 X10^3/uL (1.3-2.9) 02/11/21 04:03 [place] # (Auto) 0.7 x10^3/uL (0.3-0.8) 02/11/21 04:03 Eos # (Auto) 0.2 x10^3/uL (0.0-0.2) 02/11/21 04:03 Baso # (Auto) 0.0 X10^3/uL (0.0-0.1) 02/11/21 04:03 Absolute Nucleated RBC 0.0 /100WBC 02/11/21 04:03 ESR 41 MM/HOUR (0-20) H 02/11/21 04:03 D-Dimer 0.76 ug/ml (0.0-0.57) H* 02/11/21 09:21 Sample Site Lb 02/11/21 10:04 ABG pH 7.410 (7.35-7.45) 02/11/21 10:04 ABG pCO2 40.0 mmHg (35.0-45.0) 02/11/21 10:04 ABG pO2 79.0 mmHg (80.0-100.0) L 02/11/21 10:04 ABG HCO3 25.4 mmol/L (22-26) 02/11/21 10:04 ABG O2 Saturation 96.0 % (90-100) 02/11/21 10:04 ABG Base Excess 0.7 mmol/L (-2.0-2.0) 02/11/21 10:04 Donovan Test Na 02/11/21 10:04 A-a Gradient 21.0 mmHg 02/11/21 10:04 FiO2 21.0 02/11/21 10:04 Blood Gas Comments [place] tx well gmb 02/11/21 10:04 Sodium 136 mmol/L (136-145) 02/10/21 16:12 Corrected Sodium 138 mmol/L (136-145) 02/10/21 16:12 Potassium 3.5 mmol/L (3.5-5.1) 02/10/21 16:12 Chloride 99 mmol/L (98-107) 02/10/21 16:12 Carbon Dioxide 24.5 mmol/L (21-32) 02/10/21 16:12 BUN 11 mg/dL (7-18) 02/10/21 16:12 Creatinine 1.18 mg/dL (0.55-1.02) H 02/10/21 16:12 Est GFR (MDRD) Af Amer 59 (>60) 02/10/21 16:12 Est GFR (MDRD) Non-Af 49 (>60) L 02/10/21 16:12 Glucose 191 mg/dL (65-99) H 02/10/21 16:12 Hemoglobin A1c 5.6 % 02/10/21 16:12 Lactic Acid 1.5 mmol/L (0.4-2.0) 02/11/21 00:44 Uric Acid 5.6 mg/dL (2.6-6.0) 02/10/21 16:12 Calcium 8.8 mg/dL (8.5-10.1) 02/10/21 16:12 Corrected Calcium TNP 02/10/21 16:12 Magnesium 1.8 mg/dL (1.7-2.9) 02/10/21 16:12 Total Bilirubin 0.50 mg/dL (0.2-1.0) 02/10/21 16:12 AST 15 Units/L (15-37) 02/10/21 16:12 ALT 19 Units/L (12-78) 02/10/21 16:12 Alkaline Phosphatase 103 Units/L (46-116) 02/10/21 16:12 C-Reactive Protein 87.90 mg/L (0-3.0) H 02/11/21 04:03 Total Protein 8.2 g/dL (6.4-8.2) 02/10/21 16:12 Albumin 3.7 g/dL (3.4-5.0) 02/10/21 16:12 Globulin 4.5 g/dL (2.5-4.5) 02/10/21 16:12 Albumin/Globulin Ratio 0.8 Ratio (1.1-2.1) L 02/10/21 16:12 Specimen Type Clean catch urine 02/11/21 08:10 Urine Color Yellow (YELLOW) 02/11/21 08:10 Urine Appearance Clear (CLEAR) 02/11/21 08:10 Urine pH 5.0 (5.0 - 8.0) 02/11/21 08:10 Ur Specific [place] 1.025 (1.000-1.030) 02/11/21 08:10 Urine Protein 1+ (NEGATIVE) 02/11/21 08:10 Urine Glucose (UA) Negative (NEGATIVE) 02/11/21 08:10 Urine Ketones Negative (NEGATIVE) 02/11/21 08:10 Urine Occult Blood 1+ (NEGATIVE) 02/11/21 08:10 Urine Nitrite Negative (NEGATIVE) 02/11/21 08:10 Urine Bilirubin Negative (NEGATIVE) 02/11/21 08:10 Urine Urobilinogen Normal (NORMAL) 02/11/21 08:10 Ur Leukocyte Esterase Negative (NEGATIVE) 02/11/21 08:10 Urine RBC 5-10 /HPF (0-3) A 02/11/21 08:10 Urine WBC 3-5 /HPF (0-5) 02/11/21 08:10 Ur Squamous Epith Cells Moderate /HPF (NEGATIVE) 02/11/21 08:10 Amorphous Sediment 1+ /HPF (NEGATIVE) 02/11/21 08:10 Urine Bacteria Trace /HPF (NEGATIVE) 02/11/21 08:10 Hyaline Casts Rare /LPF (NEGATIVE) 02/11/21 08:10 Granular Casts Rare /LPF (NEGATIVE) 02/11/21 08:10 Ur Culture Indicated? No/not indicated 02/11/21 08:10 Stool Description 150g formed brown 02/11/21 12:30 Stool Description 150g formed brown 02/11/21 12:30 Stl Occult Blood (IFOB) Negative (NEGATIVE) 02/11/21 12:30 Stool for White Cells Negative (NEGATIVE) 02/11/21 12:30 Stl C. diff Tox B Gene Negative (NEGATIVE) 02/11/21 12:30 Stl C. diff [id number] Presumptive negative (NEGATIVE) 02/11/21 12:30 Stool H. pylori Ag Negative (NEGATIVE) 02/11/21 12:30 Cryptosporid parvum Ag Negative (NEGATIVE) 02/11/21 12:30 Giardia lamblia Ag Negative (NEGATIVE) 02/11/21 12:30 - Plan (1) Cellulitis of left lower extremity Status: Acute Plan: BC ON ADMISSION. IV ATBX VANCOMYCIN, AM LABS. BP CONTROL, STRICT I&OS, GENTLE IV HYDRATION. PAIN CONTROL, BP MONITORING, VERIFY HOME MEDICATION. STOOL STUDIES, VENOUS US RO DVT ON ADMISSION. CT LLE RO OSTEOMYELITIS. LOVENOX THERAPY (2) Sepsis Status: Acute (3) Fever Status: Acute (4) Diarrhea Status: Acute Qualifiers: Diarrhea type: unspecified type Qualified Code(s): R19.7 - Diarrhea, unspecified (5) CAD (coronary artery disease) Status: Acute (6) CHF (congestive heart failure) Status: Acute
[2021-02-11 19:01] LABS: FREE T4 (FREE THYROXINE) 1.14 ng/dL (0.76-1.46); TSH (3RD GENERATION) 1.364 uIU/mL (0.358-3.74)
[2021-02-11 19:18] LABS: IRON 22 ug/dL (50-175)
[2021-02-11] MEDS: COLACE CAP 100 MG PO SCH (22:08)
[2021-02-12 05:14] LABS: ALANINE AMINOTRANSFERASE 15 Units/L (12-78); ALBUMIN 2.9 g/dL (3.4-5.0); ALKALINE PHOSPHATASE 75 Units/L (46-116); ASPARTATE AMINO TRANSFERASE 14 Units/L (15-37); BLOOD UREA NITROGEN 11 mg/dL (7-18); CALCIUM 8.3 mg/dL (8.5-10.1); CARBON DIOXIDE 28.5 mmol/L (21-32); CHLORIDE 105 mmol/L (98-107); COR CA(FOR HYPOALB) 9.2 mg/dL (8.5-10.1); CREATININE 0.95 mg/dL (0.55-1.02); MAGNESIUM 1.9 mg/dL (1.7-2.9); SODIUM 138 mmol/L (136-145); TOTAL PROTEIN 6.5 g/dL (6.4-8.2); eGFR NON BLACK RACES > 60 (>60)
[2021-02-12 05:15] LABS: BASOPHILS % (AUTO) 0.5 % (0.2-1.0); EOSINOPHILS # (AUTO) 0.3 x10^3/uL (0.0-0.2); EOSINOPHILS % (AUTO) 5.5 % (0.9-2.9); HEMATOCRIT 30.5 % (36.0-47.0); HEMOGLOBIN 10.2 g/dL (12.0-16.0); LYMPHOCYTES # (AUTO) 1.7 X10^3/uL (1.3-2.9); LYMPHOCYTES % (AUTO) 28.5 % (21.0-51.0); MEAN CORPUSCULAR HEMOGLOBIN 28.8 pg (27.0-34.0); MEAN CORPUSCULAR HGB CONC 33.4 g/dL (33.0-35.0); MEAN CORPUSCULAR VOLUME 86.1 fL (80.0-100.0); MEAN PLATELET VOLUME 8.5 fL (7.4-11.0); MONOCYTES # (AUTO) 0.5 x10^3/uL (0.3-0.8); MONOCYTES % (AUTO) 8.6 % (0.0-13.0); NEUTROPHILS # (AUTO) 3.3 x10^3/uL (2.2-4.8); NEUTROPHILS % (AUTO) 56.9 % (42.0-75.0); PLATELET COUNT 190 X10^3/uL (150.0-450.0); RED BLOOD COUNT 3.54 X10^6/uL (3.5-5.4); RED CELL DISTRIBUTION WIDTH 13.9 % (11.6-16.5); WHITE BLOOD COUNT 5.8 X10^3/uL (3.6-10.0)
[2021-02-12] MEDS: NORCO 10/325 TAB PO PRN ×2 (09:41→15:58)
[2021-02-12] MEDS: ASPIRIN EC 81 MG PO SCH (10:04)
[2021-02-12] MEDS: K-DUR TAB 20 MEQ PO SCH ×2 (10:05→16:21)
[2021-02-12] MEDS: LASIX IVP SCH ×2 (10:05→16:21)
[2021-02-12] MEDS: LOPRESSOR TAB 25 MG PO SCH ×2 (10:05→22:48)
[2021-02-12] MEDS: CELEXA PO SCH (10:05)
[2021-02-12] MEDS: LOVENOX INJ 40 MG SYR SC SCH ×2 (10:05→22:57)
[2021-02-12] MEDS: PROTONIX INJ 40 MG VIAL IVP SCH (10:06)
[2021-02-12] MEDS: NEURONTIN TAB 600 MG PO SCH ×2 (10:06→22:55)
[2021-02-12] MEDS: SYNTHROID 75 mcg TAB PO SCH (10:06)
[2021-02-12] MEDS: PLAVIX PO SCH (10:06)
[2021-02-12] MEDS: VANCOMYCIN IV *PREMIX 1.25 G/250 ML BAG 1.25 G/250 ML PIGGYBACK IV SCH ×2 (10:07→21:52)
[2021-02-12] MEDS: NS 1000 ML 1,000 ML IV SCH (15:25)
--- NOTE | 2021-02-12 17:59 | PCM.PROG ---
Progress Note - Progress Note for Day of Date of Exam: 02/12/21 - Subjective Subjective: PT IS 65 WF DIRECT ADMIT FROM DR KEITH OFFICE WITH ACUTE LLE CELLULITIS AND FEBRILE ILLNESS, SEPSIS WITH ELEVATED CRP AND LACTIC ACID ON ADMISSION. PT WAS STARTED ON IV VANCOMYCIN ON ADMISSION, LLE US NEGATIVE FOR DVT. PT ON LOVENOX PROPHYLAXIS. PT HAD MILD IMPROVEMENT IN LLE REDNESS AND S WELLING THIS MORNING BUT CONTINUED PAIN NOT CONTROLLED WITH INCREASE TO NORCO 10. PT HAD STOOL CULTURES OBTAINED NEGATIVE FOR NORMAL DELIO AND +YEAST. PROBIOTIC AND DIFLUCAN ORDERED. PLAN TO REPEAT AM LABS AND CHEST XRAY. STRICT I&OS WITH LASIX. OBTAIN ANEMIA PANEL WITH AM LABS. - Past Medical Family Social History Past Med/Fam/Surg Hx: No changes since H&P Allergies: Allergies atorvastatin [From Lipitor] Allergy (Verified 09/15/19 20:57) budesonide [From Symbicort] Allergy (Verified 09/15/19 20:57) ciprofloxacin [From Cipro] Allergy (Verified 09/15/19 16:24) formoterol [From Symbicort] Allergy (Verified 09/15/19 20:57) shellfish derived Allergy (Verified 09/15/19 19:13) Sulfa (Sulfonamide Antibiotics) [SULFA] Allergy (Verified 09/15/19 16:24) - Review of Systems ROS: No change since H&P - Vital Signs and I&O's Vital Signs: Temperature 98.8 F Pulse Rate [Left Radial] 62 Respiratory Rate 18 Blood Pressure [Right Arm] 153/75 O2 Sat by Pulse Oximetry 98 Intake and Output: Intake & Output 02/10/21 02/11/21 02/12/21 02/13/21 11:59 11:59 11:59 11:59 Intake Total 1434 / 1434 1550 / 1550 1500 / 1500 Balance 1434 / 1434 1550 / 1550 1500 / 1500 - Physical Exam Oriented: Normal Eyes: Normal Ear: Normal Nose: Normal Throat: Normal Respiratory: Diminished Cardiovascular: Normal, Edema : Normal Auscultation: Bowel Sounds: Normal Tenderness: Normal Skin: Decreased Turgur, Red, Tender, Hot (LLE) Musculoskeletal: Left, Leg, Back:Thoracic, Swelling, Tender Psychiatric: Anxiety Affect: Anxious Speech Pattern: Clear, Appropriate - Laboratory and Diagnostics Result Diagrams: 02/12/21 04:35 02/12/21 04:35 Labs: 02/10/21 16:41 Blood Blood Culture - Preliminary 02/10/21 16:12 Blood Blood Culture - Preliminary 02/11/21 12:30 Stool Stool Culture - Preliminary 02/11/21 12:30 Stool - Final 02/11/21 08:10 Urine,Clean Catch Urine Culture - Preliminary Laboratory WBC 5.8 X10^3/uL (3.6-10.0) 02/12/21 04:35 RBC 3.54 X10^6/uL (3.5-5.4) 02/12/21 04:35 Hgb 10.2 g/dL (12.0-16.0) L 02/12/21 04:35 Hct 30.5 % (36.0-47.0) L 02/12/21 04:35 MCV 86.1 fL (80.0-100.0) 02/12/21 04:35 MCH 28.8 pg (27.0-34.0) 02/12/21 04:35 MCHC 33.4 g/dL (33.0-35.0) 02/12/21 04:35 RDW 13.9 % (11.6-16.5) 02/12/21 04:35 Plt Count 190 X10^3/uL (150.0-450.0) 02/12/21 04:35 MPV 8.5 fL (7.4-11.0) 02/12/21 04:35 Neut % (Auto) 56.9 % (42.0-75.0) 02/12/21 04:35 Lymph % (Auto) 28.5 % (21.0-51.0) 02/12/21 04:35 [place] % (Auto) 8.6 % (0.0-13.0) 02/12/21 04:35 Eos % (Auto) 5.5 % (0.9-2.9) H 02/12/21 04:35 Baso % (Auto) 0.5 % (0.2-1.0) 02/12/21 04:35 Neut # (Auto) 3.3 x10^3/uL (2.2-4.8) 02/12/21 04:35 Lymph # (Auto) 1.7 X10^3/uL (1.3-2.9) 02/12/21 04:35 [place] # (Auto) 0.5 x10^3/uL (0.3-0.8) 02/12/21 04:35 Eos # (Auto) 0.3 x10^3/uL (0.0-0.2) H 02/12/21 04:35 Baso # (Auto) 0.0 X10^3/uL (0.0-0.1) 02/12/21 04:35 Absolute Nucleated RBC 0.1 /100WBC 02/12/21 04:35 ESR 41 MM/HOUR (0-20) H 02/11/21 04:03 D-Dimer 0.97 ug/ml (0.0-0.57) H* 02/12/21 04:35 Sample Site Lb 02/11/21 10:04 ABG pH 7.410 (7.35-7.45) 02/11/21 10:04 ABG pCO2 40.0 mmHg (35.0-45.0) 02/11/21 10:04 ABG pO2 79.0 mmHg (80.0-100.0) L 02/11/21 10:04 ABG HCO3 25.4 mmol/L (22-26) 02/11/21 10:04 ABG O2 Saturation 96.0 % (90-100) 02/11/21 10:04 ABG Base Excess 0.7 mmol/L (-2.0-2.0) 02/11/21 10:04 Donovan Test Na 02/11/21 10:04 A-a Gradient 21.0 mmHg 02/11/21 10:04 FiO2 21.0 02/11/21 10:04 Blood Gas Comments [place] tx well gmb 02/11/21 10:04 Sodium 138 mmol/L (136-145) 02/12/21 04:35 Corrected Sodium TNP 02/12/21 04:35 Potassium 4.0 mmol/L (3.5-5.1) 02/12/21 04:35 Chloride 105 mmol/L (98-107) 02/12/21 04:35 Carbon Dioxide 28.5 mmol/L (21-32) 02/12/21 04:35 BUN 11 mg/dL (7-18) 02/12/21 04:35 Creatinine 0.95 mg/dL (0.55-1.02) 02/12/21 04:35 Est GFR (MDRD) Af Amer > 60 (>60) 02/12/21 04:35 Est GFR (MDRD) Non-Af > 60 (>60) 02/12/21 04:35 Glucose 99 mg/dL (65-99) 02/12/21 04:35 Hemoglobin A1c 5.6 % 02/10/21 16:12 Lactic Acid 1.5 mmol/L (0.4-2.0) 02/11/21 00:44 Uric Acid 5.6 mg/dL (2.6-6.0) 02/10/21 16:12 Calcium 8.3 mg/dL (8.5-10.1) L 02/12/21 04:35 Corrected Calcium 9.2 mg/dL (8.5-10.1) 02/12/21 04:35 Magnesium 1.9 mg/dL (1.7-2.9) 02/12/21 04:35 Iron 22 ug/dL (50-175) L 02/11/21 09:21 Transferrin 181 mg/dL (202-364) L 02/11/21 09:21 Ferritin 188 ng/mL (8-252) 02/11/21 09:21 Total Bilirubin 0.30 mg/dL (0.2-1.0) 02/12/21 04:35 AST 14 Units/L (15-37) L 02/12/21 04:35 ALT 15 Units/L (12-78) 02/12/21 04:35 Alkaline Phosphatase 75 Units/L (46-116) 02/12/21 04:35 C-Reactive Protein 60.90 mg/L (0-3.0) H 02/12/21 04:35 Total Protein 6.5 g/dL (6.4-8.2) 02/12/21 04:35 Albumin 2.9 g/dL (3.4-5.0) L 02/12/21 04:35 Globulin 3.6 g/dL (2.5-4.5) 02/12/21 04:35 Albumin/Globulin Ratio 0.8 Ratio (1.1-2.1) L 02/12/21 04:35 Vitamin B12 725 pg/mL (193-986) 02/11/21 09:21 Folate > 20.0 ng/mL (>8.6) 02/11/21 09:21 Free T4 1.14 ng/dL (0.76-1.46) 02/11/21 09:21 TSH 3rd Generation 1.364 uIU/mL (0.358-3.74) 02/11/21 09:21 Specimen Type Clean catch urine 02/11/21 08:10 Urine Color Yellow (YELLOW) 02/11/21 08:10 Urine Appearance Clear (CLEAR) 02/11/21 08:10 Urine pH 5.0 (5.0 - 8.0) 02/11/21 08:10 Ur Specific [place] 1.025 (1.000-1.030) 02/11/21 08:10 Urine Protein 1+ (NEGATIVE) 02/11/21 08:10 Urine Glucose (UA) Negative (NEGATIVE) 02/11/21 08:10 Urine Ketones Negative (NEGATIVE) 02/11/21 08:10 Urine Occult Blood 1+ (NEGATIVE) 02/11/21 08:10 Urine Nitrite Negative (NEGATIVE) 02/11/21 08:10 Urine Bilirubin Negative (NEGATIVE) 02/11/21 08:10 Urine Urobilinogen Normal (NORMAL) 02/11/21 08:10 Ur Leukocyte Esterase Negative (NEGATIVE) 02/11/21 08:10 Urine RBC 5-10 /HPF (0-3) A 02/11/21 08:10 Urine WBC 3-5 /HPF (0-5) 02/11/21 08:10 Ur Squamous Epith Cells Moderate /HPF (NEGATIVE) 02/11/21 08:10 Amorphous Sediment 1+ /HPF (NEGATIVE) 02/11/21 08:10 Urine Bacteria Trace /HPF (NEGATIVE) 02/11/21 08:10 Hyaline Casts Rare /LPF (NEGATIVE) 02/11/21 08:10 Granular Casts Rare /LPF (NEGATIVE) 02/11/21 08:10 Ur Culture Indicated? No/not indicated 02/11/21 08:10 Stool Description 150g formed brown 02/11/21 12:30 Stool Description 150g formed brown 02/11/21 12:30 Stl Occult Blood (IFOB) Negative (NEGATIVE) 02/11/21 12:30 Stool for White Cells Negative (NEGATIVE) 02/11/21 12:30 Stl C. diff Tox B Gene Negative (NEGATIVE) 02/11/21 12:30 Stl C. diff [id number] Presumptive negative (NEGATIVE) 02/11/21 12:30 Stool H. pylori Ag Negative (NEGATIVE) 02/11/21 12:30 Cryptosporid parvum Ag Negative (NEGATIVE) 02/11/21 12:30 Giardia lamblia Ag Negative (NEGATIVE) 02/11/21 12:30 - Plan (1) Cellulitis of left lower extremity Status: Acute Plan: BC ON ADMISSION. IV ATBX VANCOMYCIN, AM LABS. BP CONTROL, STRICT I&OS, GENTLE IV HYDRATION. PAIN CONTROL, BP MONITORING, VERIFY HOME MEDICATION. STOOL STUDIES, VENOUS US RO DVT ON ADMISSION. CT LLE RO OSTEOMYELITIS, NEGATIVE. LOVENOX THERAPY, IV LASIX PRN SUPPLEMENTAL O2 (2) Sepsis Status: Acute (3) Fever Status: Acute (4) Diarrhea Status: Acute Qualifiers: Diarrhea type: unspecified type Qualified Code(s): R19.7 - Diarrhea, unspecified (5) CAD (coronary artery disease) Status: Acute (6) CHF (congestive heart failure) Status: Acute
[2021-02-12] MEDS ORDERED: CULTURELLE PRO-WELL PROBIOTIC CAP PO SCH (18:00)
[2021-02-12] MEDS: DIFLUCAN 100 MG IV (MIX by PHARMACY)* 100 MG/50 ML BAG IV SCH (18:24)
[2021-02-12] MEDS: TORADOL 30 MG VIAL IVP SCH (18:25)
[2021-02-12 21:29] LABS: CREATININE 1.22 mg/dL (0.55-1.02)
[2021-02-12 21:30] LABS: VANCOMYCIN,TROUGH 20.5 ug/mL (15-20)
[2021-02-12] MEDS: COLACE CAP 100 MG PO SCH (22:48)
[2021-02-12] MEDS: DESYREL PO SCH (22:48)
[2021-02-12] MEDS: ZOCOR TAB 40 MG PO SCH (22:55)
[2021-02-13] MEDS: NS 1000 ML 1,000 ML IV SCH ×2 (01:39→17:02)
[2021-02-13] MEDS: TORADOL 30 MG VIAL IVP SCH (05:23)
[2021-02-13] MEDS ORDERED: VANCOMYCIN 1 GRAM PREMIX (ADDVANTAGE) 250 ML IV SCH (06:00)
--- NOTE | 2021-02-13 06:36 | RAD ---
HISTORYHX OF CHFSTUDYCHEST, 1 [id number]/15/2021.TECHNIQUEAP view of the chestFINDINGSThe cardiac silhouette is stably enlarged. Mediastinal contours appear stable. No consolidation or segmental lung collapse. No pleural effusion or pneumothorax. The lungs are mildly hyperexpanded.IMPRESSIONNo significant change.Electronically signed by: Chaz Baez (Feb 13, 2021 06:34:51)
[2021-02-13 07:18] LABS: BASOPHILS % (AUTO) 0.4 % (0.2-1.0); EOSINOPHILS # (AUTO) 0.4 x10^3/uL (0.0-0.2); EOSINOPHILS % (AUTO) 6.5 % (0.9-2.9); HEMATOCRIT 29.4 % (36.0-47.0); LYMPHOCYTES # (AUTO) 1.4 X10^3/uL (1.3-2.9); MEAN CORPUSCULAR HEMOGLOBIN 28.7 pg (27.0-34.0); MEAN CORPUSCULAR VOLUME 84.5 fL (80.0-100.0); MEAN PLATELET VOLUME 8.2 fL (7.4-11.0); MONOCYTES # (AUTO) 0.5 x10^3/uL (0.3-0.8); MONOCYTES % (AUTO) 9.1 % (0.0-13.0); NEUTROPHILS # (AUTO) 3.4 x10^3/uL (2.2-4.8); PLATELET COUNT 220 X10^3/uL (150.0-450.0); RED BLOOD COUNT 3.49 X10^6/uL (3.5-5.4); WHITE BLOOD COUNT 5.7 X10^3/uL (3.6-10.0)
[2021-02-13 07:28] LABS: ALANINE AMINOTRANSFERASE 15 Units/L (12-78); ALBUMIN 2.9 g/dL (3.4-5.0); ALKALINE PHOSPHATASE 77 Units/L (46-116); ASPARTATE AMINO TRANSFERASE 12 Units/L (15-37); BLOOD UREA NITROGEN 20 mg/dL (7-18); CALCIUM 8.7 mg/dL (8.5-10.1); CARBON DIOXIDE 27.5 mmol/L (21-32); CHLORIDE 106 mmol/L (98-107); COR CA(FOR HYPOALB) 9.6 mg/dL (8.5-10.1); CREATININE 0.96 mg/dL (0.55-1.02); SODIUM 142 mmol/L (136-145); TOTAL PROTEIN 6.5 g/dL (6.4-8.2); eGFR NON BLACK RACES > 60 (>60)
[2021-02-13] MEDS ORDERED: INFeD or DEXFERRUM 25 MG in NS 100 ML IV 100 ML IV ONE (08:00)
[2021-02-13] MEDS ORDERED: INFeD or DEXFERRUM 975 MG in NS 500 ML IV 500 ML IV ONE (09:00)
[2021-02-13] MEDS: CELEXA PO SCH (09:30)
[2021-02-13] MEDS: SYNTHROID 75 mcg TAB PO SCH (09:53)
[2021-02-13] MEDS: LOPRESSOR TAB 25 MG PO SCH ×2 (09:53→20:36)
[2021-02-13] MEDS: PROTONIX INJ 40 MG VIAL IVP SCH (09:53)
[2021-02-13] MEDS: ASPIRIN EC 81 MG PO SCH (09:54)
[2021-02-13] MEDS: LASIX IVP SCH (09:56)
[2021-02-13] MEDS: LOVENOX INJ 40 MG SYR SC SCH ×2 (09:59→21:43)
[2021-02-13] MEDS: NORCO 10/325 TAB PO PRN ×2 (10:11→20:37)
[2021-02-13] MEDS: DIFLUCAN 200 MG IV PREMIX* 200 MG/100 ML BAG IV SCH (10:41)
[2021-02-13] MEDS: PLAVIX PO SCH (10:54)
[2021-02-13] MEDS: VSL#3 PO SCH (10:54)
[2021-02-13] MEDS: VANCOMYCIN IV *PREMIX 1 G/200 ML BAG 1 G/200 ML PIGGYBACK IV SCH ×2 (10:57→20:36)
[2021-02-13] MEDS: NEURONTIN TAB 600 MG PO SCH ×2 (10:57→20:36)
--- NOTE | 2021-02-13 19:19 | VAS ---
HISTORYBIL UPPER EXT NUMBNESS, R/O DVTSTUDYUPPER EXT VENOUS, BILATCOMPARISONNo relevant prior studies available.TECHNIQUEGrayscale and color Doppler images of the upper extremities.FINDINGSRight upper extremity:Jugular, subclavian, axillary, brachial, ulnar, cephalic, basilic and radial veins demonstrate normal compressibility, color Doppler flow, waveforms and augmentation with no filling defects.Soft tissues: UnremarkableLeft upper extremity:Jugular, subclavian, axillary, brachial, ulnar, cephalic, basilic and radial veins demonstrate normal compressibility, color Doppler flow, waveforms and augmentation with no filling defects.Soft tissues:UnremarkableIMPRESSIONNo evidence of deep venous thrombus in either upper extremity..Electronically signed by: Amadou Hernandez (Feb 13, 2021 19:17:06)
[2021-02-13] MEDS: ZOCOR TAB 40 MG PO SCH (20:35)
[2021-02-13] MEDS: COLACE CAP 100 MG PO SCH (20:35)
[2021-02-13] MEDS: DESYREL PO SCH (20:35)
[2021-02-13] MEDS ORDERED: AMBIEN PO PRN (23:51)
[2021-02-14] MEDS: NS 1000 ML 1,000 ML IV SCH (04:47)
[2021-02-14 06:19] LABS: BASOPHILS % (AUTO) 0.7 % (0.2-1.0); EOSINOPHILS # (AUTO) 0.5 x10^3/uL (0.0-0.2); EOSINOPHILS % (AUTO) 8.3 % (0.9-2.9); HEMOGLOBIN 11.1 g/dL (12.0-16.0); LYMPHOCYTES # (AUTO) 1.9 X10^3/uL (1.3-2.9); LYMPHOCYTES % (AUTO) 28.4 % (21.0-51.0); MEAN CORPUSCULAR HEMOGLOBIN 29.2 pg (27.0-34.0); MEAN CORPUSCULAR HGB CONC 33.8 g/dL (33.0-35.0); MEAN CORPUSCULAR VOLUME 86.6 fL (80.0-100.0); MONOCYTES # (AUTO) 0.5 x10^3/uL (0.3-0.8); MONOCYTES % (AUTO) 8.1 % (0.0-13.0); NEUTROPHILS # (AUTO) 3.6 x10^3/uL (2.2-4.8); NEUTROPHILS % (AUTO) 54.5 % (42.0-75.0); PLATELET COUNT 270 X10^3/uL (150.0-450.0); RED BLOOD COUNT 3.81 X10^6/uL (3.5-5.4); RED CELL DISTRIBUTION WIDTH 13.9 % (11.6-16.5); WHITE BLOOD COUNT 6.6 X10^3/uL (3.6-10.0)
[2021-02-14 06:29] LABS: ALBUMIN 3.4 g/dL (3.4-5.0); ALKALINE PHOSPHATASE 99 Units/L (46-116); BLOOD UREA NITROGEN 16 mg/dL (7-18); CARBON DIOXIDE 28.1 mmol/L (21-32); CHLORIDE 104 mmol/L (98-107); SODIUM 140 mmol/L (136-145); TOTAL PROTEIN 7.4 g/dL (6.4-8.2); eGFR NON BLACK RACES > 60 (>60)
[2021-02-14 07:08] LABS: ASPARTATE AMINO TRANSFERASE 19 Units/L (15-37)
[2021-02-14 07:09] LABS: ALANINE AMINOTRANSFERASE 21 Units/L (12-78)
[2021-02-14] MEDS: ASPIRIN EC 81 MG PO SCH (08:28)
[2021-02-14] MEDS: SYNTHROID 75 mcg TAB PO SCH (08:29)
[2021-02-14] MEDS: DIFLUCAN 200 MG IV PREMIX* 200 MG/100 ML BAG IV SCH (08:29)
[2021-02-14] MEDS: CELEXA PO SCH (08:29)
[2021-02-14] MEDS: LOPRESSOR TAB 25 MG PO SCH (08:29)
[2021-02-14] MEDS: PROTONIX INJ 40 MG VIAL IVP SCH (08:30)
[2021-02-14] MEDS: PLAVIX PO SCH (08:31)
[2021-02-14] MEDS: LOVENOX INJ 40 MG SYR SC SCH (08:33)
[2021-02-14] MEDS: NEURONTIN TAB 600 MG PO SCH (08:33)
[2021-02-14] MEDS: VSL#3 PO SCH (10:38)
[2021-02-14] MEDS: VANCOMYCIN IV *PREMIX 1 G/200 ML BAG 1 G/200 ML PIGGYBACK IV SCH (10:38)
[2021-02-14 13:49] VITALS: BP 162/84
[2021-02-14] MEDS ORDERED: PHARMACY COMMENT IV ONE (20:30)
== END 2021-02-14 13:49 | disposition home or self-care (01) | DRG 872 ==
LOC: OBS → OBSVTOIN 15:46
PROVIDERS: ADMIT Internal Medicine; ATTEND Internal Medicine
DX: A41.89 Other specified sepsis; R26.89 Other abnormalities of gait and mobility; R79.82 Elevated C-reactive protein (CRP); I25.10 Atherosclerotic heart disease of native coronary artery without angina pectoris; Z79.01 Long term (current) use of anticoagulants; D50.8 Other iron deficiency anemias; R19.7 Diarrhea, unspecified; L03.116 Cellulitis of left lower limb; E78.2 Mixed hyperlipidemia; I10 Essential (primary) hypertension; R79.89 Other specified abnormal findings of blood chemistry

== ENCOUNTER 2022-08-18 16:46 | Inpatient (IN) ==
[2022-08-18 17:41] VITALS: BMI 47.0
[2022-08-18] MEDS ORDERED: ATARAX TAB 25 MG PO PRN (17:48)
[2022-08-18] MEDS ORDERED: NORCO 7.5/325 MG TAB PO PRN (17:50)
[2022-08-18 18:16] LABS: BASOPHILS % (AUTO) 0.5 % (0.2-1.0); EOSINOPHILS # (AUTO) 0.2 x10^3/uL (0.0-0.2); EOSINOPHILS % (AUTO) 4.6 % (0.9-2.9); HEMATOCRIT 34.1 % (36.0-47.0); HEMOGLOBIN 11.3 g/dL (12.0-16.0); LYMPHOCYTES # (AUTO) 1.6 X10^3/uL (1.3-2.9); LYMPHOCYTES % (AUTO) 33.9 % (21.0-51.0); MEAN CORPUSCULAR HEMOGLOBIN 28.4 pg (27.0-34.0); MEAN CORPUSCULAR HGB CONC 33.2 g/dL (33.0-35.0); MEAN CORPUSCULAR VOLUME 85.6 fL (80.0-100.0); MEAN PLATELET VOLUME 8.7 fL (7.4-11.0); MONOCYTES # (AUTO) 0.6 x10^3/uL (0.3-0.8); MONOCYTES % (AUTO) 12.5 % (0.0-13.0); NEUTROPHILS # (AUTO) 2.4 x10^3/uL (2.2-4.8); NEUTROPHILS % (AUTO) 48.5 % (42.0-75.0); RED BLOOD COUNT 3.99 X10^6/uL (3.5-5.4); RED CELL DISTRIBUTION WIDTH 14.3 % (11.6-16.5); WHITE BLOOD COUNT 4.9 X10^3/uL (3.6-10.0)
--- NOTE | 2022-08-18 18:24 | DR.H&P ---
H&P - History & Physical for Day of: H&P Date: 08/18/22 - Chief Complaint Chief Complaint: SWELLING AND REDNESS TO LOWER LEGS, LEG PAIN - History of Present Illness History of Present Illness: PT IS 67 WF, DIRECT ADMIT FROM DR KEITH OFFICE WITH CO BILATERAL LOWER EXTREMITY CELLULITIS AND PAINFUL SWELLING. PT HAS TAKEN PO DOXYCYCLINE AND KEFLEX IN THE PAST 3 WEEKS FOR LOWER EXTREMITY CELLULITIS. PT HAS PMH OF CAD AND HTN, UNDER THE CARE OF DR GROSS. PT REPORTS INCREASED SOB, HER LAST ECHO WAS IN 2021 WITH EF 52%. PT HAS BEEN TAKING WATER PILLS WITHOUT IMPROVEMENT IN LOWER LEG SWELLING. PT ADMITTED FOR TREATMENT AND EVALUATION OF ACUTE ILLNESS. - Past Medical History Past Medical History: Anemia, Anxiety, Asthma, CHF, COPD, Coronary Artery Disease, Depression, Dyslipidemia, Gout, Hypertension, Kidney Stones - Past Surgical History Surgical History: Cholecystectomy, Thyroidectomy - Family History Family Medical History: Cancer, [place] - Social History Does patient currently use any type of tobacco product: No Have you used tobacco products in the last 12 months: No Type of Tobacco Use: None Does any household member use tobacco: No Alcohol Use: None Drug Use: None - Medications Home Medications: atorvastatin [From Lipitor] Allergy (Unknown, Unverified 09/27/19 14:42) budesonide [From Symbicort] Allergy (Unknown, Unverified 09/27/19 14:42) ciprofloxacin [From Cipro] Allergy (Unknown, Unverified 09/27/19 14:41) formoterol [From Symbicort] Allergy (Unknown, Unverified 09/27/19 14:42) shellfish derived Allergy (Unknown, Unverified 09/27/19 14:44) sulfacetamide Allergy (Unknown, Verified 09/27/19 14:42) Sulfa (Sulfonamide Antibiotics) [SULFA] Allergy (Verified 09/15/19 16:24) - Review of Systems Constitutional: Weakness, Malaise Eyes: No Symptoms Reported ENT: No Symptoms Reported Respiratory: SOB with Excertion Cardiovascular: Edema Gastrointestinal: Nausea, Diarrhea Musculoskeletal: Leg Pain Skin: Rash, Wound Neurological: Weakness - Physical Exam Vital Signs: Blood Pressure [Right Arm] 162/84 Oriented: Normal Eyes: Normal Ear: Normal Nose: Normal Throat: Normal Respiratory: RLL Diminished, LLL Diminished Cardiovascular: Edema : Normal Auscultation: Bowel Sounds: Normal Palpation: Normal Tenderness: Normal Skin: Decreased Turgur, Red, Tender, Hot Musculoskeletal: Back:Lumbar, Swelling, Tender Psychiatric: Anxiety Mood Description: Depressed Affect: Anxious Speech Pattern: Clear, Appropriate - Assessment/Plan (1) Cellulitis of left lower extremity Status: Acute Plan: ADMIT, IV ATBX THERAPY, IV LASIX. STRICT I&OS, SPAULDING CATH PLACEMENT. ADMISSION LABS CBC CMP CARDIAC ENZYMES AND BLOOD CULTURES. PAIN CONTROL, BP AND CARDIAC MONITORING. CXR ON ADMISSION (2) CHF (congestive heart failure) Status: Acute (3) CAD (coronary artery disease) Status: Acute (4) Gastroesophageal reflux disease Status: None - Allergies Allergies/Adverse Reactions: Allergies Allergy/AdvReac Type Severity Reaction Status Date / Time atorvastatin [From Lipitor] Allergy Unknown Unverified 09/27/19 14:42 budesonide [From Symbicort] Allergy Unknown Unverified 09/27/19 14:42 ciprofloxacin [From Cipro] Allergy Unknown Unverified 09/27/19 14:41 formoterol [From Symbicort] Allergy Unknown Unverified 09/27/19 14:42 shellfish derived Allergy Unknown Unverified 09/27/19 14:44 sulfacetamide Allergy Unknown Verified 09/27/19 14:42 Sulfa (Sulfonamide Allergy Verified 09/15/19 16:24 Antibiotics) [SULFA]
[2022-08-18 18:27] LABS: ALANINE AMINOTRANSFERASE 28 Units/L (12-78); ALBUMIN 4.3 g/dL (3.4-5.0); ALKALINE PHOSPHATASE 100 Units/L (46-116); ASPARTATE AMINO TRANSFERASE 26 Units/L (15-37); BLOOD UREA NITROGEN 14 mg/dL (7-18); CALCIUM 8.7 mg/dL (8.5-10.1); CARBON DIOXIDE 26.3 mmol/L (21-32); CHLORIDE 106 mmol/L (98-107); CREATINE KINASE 322 Units/L (26-192); CREATININE 0.96 mg/dL (0.55-1.02); SODIUM 142 mmol/L (136-145); TOTAL PROTEIN 7.1 g/dL (6.4-8.2); eGFR NON BLACK RACES > 60 (>60)
[2022-08-18] MEDS ORDERED: XOPENEX 1.25 MG/3 ML NEBULE NEB ONE (19:18)
[2022-08-18] MEDS: CLEOCIN 600 MG IV PREMIX 600 MG/50 ML BAG IV SCH (20:18)
[2022-08-18] MEDS: PROTONIX INJ 40 MG VIAL IVP SCH (20:19)
[2022-08-18] MEDS: COLACE CAP 100 MG PO SCH (20:19)
[2022-08-18] MEDS: NS 1,000 ML IV 1,000 ML IV SCH (20:19)
[2022-08-18] MEDS: DESYREL PO SCH (20:20)
[2022-08-18] MEDS: TOPAMAX TAB 100 MG PO SCH (20:20)
[2022-08-18] MEDS: LOPRESSOR TAB 25 MG PO SCH (20:21)
[2022-08-18] MEDS: XOPENEX 1.25 MG/3 ML NEBULE NEB SCH (20:23)
[2022-08-18 20:33] LABS: APPEARANCE,URINE CLEAR (CLEAR); BILIRUBIN,URINE NEGATIVE (NEGATIVE); BLOOD/HEMOGLOBIN,URINE NEGATIVE (NEGATIVE); COLOR,URINE YELLOW (YELLOW); GLUCOSE, URINE NEGATIVE (NEGATIVE); KETONES,URINE NEGATIVE (NEGATIVE); LEUKOCYTE ESTERASE ,URINE 2+ (NEGATIVE); NITRITES,URINE NEGATIVE (NEGATIVE); PH,URINE 6.5 (5.0 - 8.0); PROTEIN,URINE NEGATIVE (NEGATIVE); UROBILINOGEN,URINE NORMAL (NORMAL)
[2022-08-18] MEDS: K-DUR TAB 20 MEQ PO SCH (20:33)
[2022-08-18 20:34] LABS: BACTERIA,URINE NEGATIVE /HPF (NEGATIVE); RBC,URINE 0-2 /HPF (0-3); SQUAMOUS EPITHELIAL CELL,UR RARE /HPF (NEGATIVE)
[2022-08-19] MEDS: CLEOCIN 600 MG IV PREMIX 600 MG/50 ML BAG IV SCH ×2 (03:19→05:47)
[2022-08-19] MEDS: NEURONTIN TAB 600 MG PO SCH ×4 (03:20→21:05)
[2022-08-19 05:48] LABS: BASOPHILS % (AUTO) 0.5 % (0.2-1.0); EOSINOPHILS # (AUTO) 0.2 x10^3/uL (0.0-0.2); EOSINOPHILS % (AUTO) 4.6 % (0.9-2.9); HEMATOCRIT 30.2 % (36.0-47.0); LYMPHOCYTES # (AUTO) 1.5 X10^3/uL (1.3-2.9); LYMPHOCYTES % (AUTO) 35.7 % (21.0-51.0); MEAN CORPUSCULAR HEMOGLOBIN 28.3 pg (27.0-34.0); MEAN CORPUSCULAR HGB CONC 33.3 g/dL (33.0-35.0); MEAN CORPUSCULAR VOLUME 85.1 fL (80.0-100.0); MEAN PLATELET VOLUME 8.8 fL (7.4-11.0); MONOCYTES # (AUTO) 0.4 x10^3/uL (0.3-0.8); MONOCYTES % (AUTO) 10.6 % (0.0-13.0); NEUTROPHILS % (AUTO) 48.6 % (42.0-75.0); RED BLOOD COUNT 3.55 X10^6/uL (3.5-5.4); RED CELL DISTRIBUTION WIDTH 14.2 % (11.6-16.5); WHITE BLOOD COUNT 4.2 X10^3/uL (3.6-10.0)
[2022-08-19 06:06] LABS: ALANINE AMINOTRANSFERASE 23 Units/L (12-78); ALBUMIN 3.5 g/dL (3.4-5.0); ALKALINE PHOSPHATASE 84 Units/L (46-116); ASPARTATE AMINO TRANSFERASE 19 Units/L (15-37); BLOOD UREA NITROGEN 13 mg/dL (7-18); CALCIUM 8.6 mg/dL (8.5-10.1); CARBON DIOXIDE 26.3 mmol/L (21-32); CHLORIDE 111 mmol/L (98-107); CREATININE 0.85 mg/dL (0.55-1.02); SODIUM 145 mmol/L (136-145); TOTAL PROTEIN 5.9 g/dL (6.4-8.2); eGFR NON BLACK RACES > 60 (>60)
--- NOTE | 2022-08-19 07:13 | RAD ---
HISTORYShortness of breathSTUDYChest AP [id number]/2022FINDINGSThe heart is mildly enlarged. No congestive heart failure is noted. No acute alveolar infiltrates or pleural effusions are identified. Bony thorax is unremarkable.IMPRESSIONMild cardiomegaly without congestive heart failureNo infiltratesElectronically signed by: SANG BENÍTEZ (Aug 19, 2022 07:12:09)
[2022-08-19] MEDS: XOPENEX 1.25 MG/3 ML NEBULE NEB SCH ×4 (08:16→21:00)
[2022-08-19] MEDS: PROTONIX INJ 40 MG VIAL IVP SCH (09:14)
[2022-08-19] MEDS: TOPAMAX TAB 100 MG PO SCH ×2 (09:15→20:59)
[2022-08-19] MEDS: LOPRESSOR TAB 25 MG PO SCH ×2 (09:15→21:03)
[2022-08-19] MEDS: K-DUR TAB 20 MEQ PO SCH ×2 (09:15→17:13)
[2022-08-19] MEDS: LASIX IVP SCH ×2 (09:15→17:12)
[2022-08-19] MEDS: VSL#3 PO SCH (09:16)
[2022-08-19] MEDS: PLAVIX PO SCH (09:17)
[2022-08-19] MEDS: CLARITIN PO SCH (09:17)
[2022-08-19] MEDS: CELEXA PO SCH (09:17)
[2022-08-19] MEDS: SYNTHROID 75 mcg TAB PO SCH (09:21)
--- NOTE | 2022-08-19 10:07 | VAS ---
HISTORY:Bilateral lower extremity swellingStudy: Venous DopplerComparison:NoneTECHNIQUE: Multiple carpenter scale and color flow Doppler images of the deep venous system were obtained of the bilateral lower extremitiesFINDINGS:There is normal respiratory phasicity, compression and augmentation of the extremity veins without evidence of acute DVT .IMPRESSION:1.Negative for DVT.Electronically signed by: DEENA MISTRY (Aug 19, 2022 10:07:06)
[2022-08-19] MEDS: CLEOCIN 300 MG IV PREMIX 600 MG/100 ML BAG IV SCH ×2 (14:20→21:01)
[2022-08-19] MEDS: NS 1,000 ML IV 1,000 ML IV SCH (17:14)
--- NOTE | 2022-08-19 17:55 | PCM.PROG ---
Progress Note - Progress Note for Day of Date of Exam: 08/19/22 - Subjective Subjective: PT IS 67 WF, DIRECT ADMIT FROM DR KEITH OFFICE WITH CO BILATERAL LOWER EXTREMITY CELLULITIS AND PAINFUL SWELLING. PT HAS TAKEN PO DOXYCYCLINE AND KEFLEX IN THE PAST 3 WEEKS FOR LOWER EXTREMITY CELLULITIS. PT HAS PMH OF CAD AND HTN, UNDER THE CARE OF DR GROSS. PT REPORTS INCREASED SOB, HER LAST ECHO WAS IN 2021 WITH EF 52%. PT WAS STARTED ON IV LASIX ON ADMISSION WITH POTASSIUM REPLACEMENT AND HAS HAD AROUND 4L URINE OUTPT. PT DENIES ANY CHEST PAIN THIS AM. CONTINUES WITH BILATERAL LOWER LEG PAIN. MILD IMPROVEMENT IN LOWER LEG REDNESS WITH IV ATBX THERAPY. PTS HOME MEDICATION HAS BEEN RESUMED. PT REPORTS SHE HAD BEEN HAVING TERRIBLE DIARRHEA PRIOR TO ADMISSION, STOOL STUDIES HAVE BEEN ORDERED. CXR STABLE. WILL CONTINUE WITH IV ATBX AND IV LASIX AND WILL REPEAT AM LABS AND DISCUSSED POSSIBLE DC HOME TOMORROW. - Past Medical Family Social History Past Med/Fam/Surg Hx: No changes since H&P Allergies: Allergies atorvastatin [From Lipitor] Allergy (Unknown, Unverified 09/27/19 14:42) Reason: Drug allergy budesonide [From Symbicort] Allergy (Unknown, Unverified 09/27/19 14:42) Reason: Drug allergy ciprofloxacin [From Cipro] Allergy (Unknown, Unverified 09/27/19 14:41) Reason: Drug allergy formoterol [From Symbicort] Allergy (Unknown, Unverified 09/27/19 14:42) Reason: Drug allergy shellfish derived Allergy (Unknown, Unverified 09/27/19 14:44) sulfacetamide Allergy (Unknown, Verified 09/27/19 14:42) Reason: Drug allergy Sulfa (Sulfonamide Antibiotics) [SULFA] Allergy (Verified 09/15/19 16:24) - Review of Systems ROS: No change since H&P - Vital Signs and I&O's Vital Signs: Temperature 98.4 F Pulse Rate [Apical] 81 Pulse Rate 78 Respiratory Rate 18 Blood Pressure [Right Arm] 118/55 Blood Pressure 151/85 O2 Sat by Pulse Oximetry 97 Intake and Output: Intake & Output 08/17/22 08/18/22 08/19/22 08/20/22 11:59 11:59 11:59 11:59 Intake Total 1064 / 1064 680 / 680 Output Total 1200 / 4450 3550 / 3550 Balance -136 / -3386 -2870 / -2870 - Physical Exam Oriented: Normal Eyes: Normal Ear: Normal Nose: Normal Throat: Normal Respiratory: Diminished Cardiovascular: Edema : Normal Auscultation: Bowel Sounds: Normal Tenderness: Normal Skin: Decreased [place], Red, Tender, Hot Musculoskeletal: Back:Lumbar, Swelling, Tender Psychiatric: Anxiety Mood Description: Depressed Affect: Anxious Speech Pattern: Clear, Appropriate - Laboratory and Diagnostics Result Diagrams: 08/19/22 05:17 08/19/22 05:17 Labs: 08/18/22 20:09 Urine,Clean Catch Urine Culture - Preliminary Laboratory WBC 4.2 X10^3/uL (3.6-10.0) 08/19/22 05:17 RBC 3.55 X10^6/uL (3.5-5.4) 08/19/22 05:17 Hgb 10.0 g/dL (12.0-16.0) L 08/19/22 05:17 Hct 30.2 % (36.0-47.0) L 08/19/22 05:17 MCV 85.1 fL (80.0-100.0) 08/19/22 05:17 MCH 28.3 pg (27.0-34.0) 08/19/22 05:17 MCHC 33.3 g/dL (33.0-35.0) 08/19/22 05:17 RDW 14.2 % (11.6-16.5) 08/19/22 05:17 Plt Count 151 X10^3/uL (150.0-450.0) 08/19/22 05:17 MPV 8.8 fL (7.4-11.0) 08/19/22 05:17 Neut % (Auto) 48.6 % (42.0-75.0) 08/19/22 05:17 Lymph % (Auto) 35.7 % (21.0-51.0) 08/19/22 05:17 [place] % (Auto) 10.6 % (0.0-13.0) 08/19/22 05:17 Eos % (Auto) 4.6 % (0.9-2.9) H 08/19/22 05:17 Baso % (Auto) 0.5 % (0.2-1.0) 08/19/22 05:17 Neut # (Auto) 2.0 x10^3/uL (2.2-4.8) L 08/19/22 05:17 Lymph # (Auto) 1.5 X10^3/uL (1.3-2.9) 08/19/22 05:17 [place] # (Auto) 0.4 x10^3/uL (0.3-0.8) 08/19/22 05:17 Eos # (Auto) 0.2 x10^3/uL (0.0-0.2) 08/19/22 05:17 Baso # (Auto) 0.0 X10^3/uL (0.0-0.1) 08/19/22 05:17 Absolute Nucleated RBC 0.0 /100WBC 08/19/22 05:17 Sodium 145 mmol/L (136-145) 08/19/22 05:17 Corrected Sodium TNP 08/19/22 05:17 Potassium 3.6 mmol/L (3.5-5.1) 08/19/22 05:17 Chloride 111 mmol/L (98-107) H 08/19/22 05:17 Carbon Dioxide 26.3 mmol/L (21-32) 08/19/22 05:17 BUN 13 mg/dL (7-18) 08/19/22 05:17 Creatinine 0.85 mg/dL (0.55-1.02) 08/19/22 05:17 Est GFR (MDRD) Af Amer > 60 (>60) 08/19/22 05:17 Est GFR (MDRD) Non-Af > 60 (>60) 08/19/22 05:17 Glucose 85 mg/dL (65-99) 08/19/22 05:17 Calcium 8.6 mg/dL (8.5-10.1) 08/19/22 05:17 Corrected Calcium TNP 08/19/22 05:17 Total Bilirubin 0.30 mg/dL (0.2-1.0) 08/19/22 05:17 AST 19 Units/L (15-37) 08/19/22 05:17 ALT 23 Units/L (12-78) 08/19/22 05:17 Alkaline Phosphatase 84 Units/L (46-116) 08/19/22 05:17 Creatine Kinase 322 Units/L (26-192) H 08/18/22 17:59 Troponin I High Sens 6.1 ng/L (4.0-60.0) 08/18/22 17:59 B-Natriuretic Peptide 23.5 pg/mL (0-79) 08/18/22 17:59 Total Protein 5.9 g/dL (6.4-8.2) L 08/19/22 05:17 Albumin 3.5 g/dL (3.4-5.0) 08/19/22 05:17 Globulin 2.4 g/dL (2.5-4.5) L 08/19/22 05:17 Albumin/Globulin Ratio 1.5 Ratio (1.1-2.1) 08/19/22 05:17 Specimen Type Catherized urine 08/18/22 20:09 Urine Color Yellow (YELLOW) 08/18/22 20:09 Urine Appearance Clear (CLEAR) 08/18/22 20:09 Urine pH 6.5 (5.0 - 8.0) 08/18/22 20:09 Ur Specific [place] 1.010 (1.000-1.030) 08/18/22 20:09 Urine Protein Negative (NEGATIVE) 08/18/22 20:09 Urine Glucose (UA) Negative (NEGATIVE) 08/18/22 20:09 Urine Ketones Negative (NEGATIVE) 08/18/22 20:09 Urine Blood Negative (NEGATIVE) 08/18/22 20:09 Urine Nitrite Negative (NEGATIVE) 08/18/22 20:09 Urine Bilirubin Negative (NEGATIVE) 08/18/22 20:09 Urine Urobilinogen Normal (NORMAL) 08/18/22 20:09 Ur Leukocyte Esterase 2+ (NEGATIVE) 08/18/22 20:09 Urine RBC 0-2 /HPF (0-3) 08/18/22 20:09 Urine WBC 3-5 /HPF (0-5) 08/18/22 20:09 Ur Squamous Epith Cells Rare /HPF (NEGATIVE) 08/18/22 20:09 Urine Bacteria Negative /HPF (NEGATIVE) 08/18/22 20:09 Ur Culture Indicated? Yes/culture set up 08/18/22 20:09 - Plan (1) Cellulitis of left lower extremity Status: Acute Plan: CONTINUE IV ATBX THERAPY, IV LASIX. STRICT I&OS, SPAULDING CATH PLACEMENT. ADMISSION LABS CBC CMP CARDIAC ENZYMES AND BLOOD CULTURES. PAIN CONTROL, BP AND CARDIAC MONITORING. CXR ON ADMISSION (2) CHF (congestive heart failure) Status: Acute (3) CAD (coronary artery disease) Status: Acute (4) Gastroesophageal reflux disease Status: None
[2022-08-19] MEDS: DESYREL PO SCH (20:58)
[2022-08-19] MEDS: COLACE CAP 100 MG PO SCH (20:59)
[2022-08-19] MEDS ORDERED: TYLENOL 325 MG TAB PO PRN (23:18)
[2022-08-20] MEDS: CLEOCIN 300 MG IV PREMIX 600 MG/100 ML BAG IV SCH (05:32)
[2022-08-20] MEDS: NEURONTIN TAB 600 MG PO SCH (05:32)
[2022-08-20] MEDS: NS 1,000 ML IV 1,000 ML IV SCH (05:32)
[2022-08-20] MEDS: SYNTHROID 75 mcg TAB PO SCH (07:00)
[2022-08-20] MEDS: PROTONIX INJ 40 MG VIAL IVP SCH (08:27)
[2022-08-20] MEDS: VSL#3 PO SCH (08:27)
[2022-08-20] MEDS: K-DUR TAB 20 MEQ PO SCH (08:28)
[2022-08-20] MEDS: CELEXA PO SCH (08:29)
[2022-08-20] MEDS: TOPAMAX TAB 100 MG PO SCH (08:29)
[2022-08-20] MEDS: PLAVIX PO SCH (08:29)
[2022-08-20] MEDS: CLARITIN PO SCH (08:29)
[2022-08-20] MEDS: LASIX IVP SCH (08:29)
[2022-08-20] MEDS ORDERED: ZOFRAN INJ 4 MG VIAL IVP ONE (09:55)
[2022-08-20 10:38] VITALS: BP 134/63
[2022-08-20] MEDS ORDERED: DIFLUCAN PO SCH (11:00)
[2022-08-21] MEDS ORDERED: SYNTHROID 75 mcg TAB PO SCH (07:00)
== END 2022-08-20 13:30 | disposition home or self-care (01) | DRG 603 ==
LOC: MED/SURG 16:58
PROVIDERS: ADMIT Internal Medicine; ATTEND Internal Medicine
DX: R06.02 Shortness of breath; W19.XXXA Unspecified fall, initial encounter; K21.9 Gastro-esophageal reflux disease without esophagitis; F41.8 Other specified anxiety disorders; F32.89 Other specified depressive episodes; L03.116 Cellulitis of left lower limb; I11.0 Hypertensive heart disease with heart failure; E78.2 Mixed hyperlipidemia; M19.90 Unspecified osteoarthritis, unspecified site; I50.9 Heart failure, unspecified; I25.10 Atherosclerotic heart disease of native coronary artery without angina pectoris; L03.115 Cellulitis of right lower limb; R09.89 Other specified symptoms and signs involving the circulatory and respiratory systems

== ENCOUNTER 2023-03-25 14:17 | Inpatient (IN) ==
--- NOTE | 2023-03-25 15:11 | DR.EXTPAIN ---
HPI Time seen Time Seen by Provider: 03/25/23 15:10 PCP Primary Care Physician: FREEDOM Mojica ADHESIVE PRIMER Complaint/Symptoms Chief Complaint Doctor Comments: Cellulitis of the left leg. Patient stated that the left leg became more inflamed red and hot she has had a problem with cellulitis of the left leg now she is on antibiotics for treatment. She states she developed more pain and swelling in left leg and she was brought to the ER for further evaluation and treatment Chief Complaint:: ems called out to pt with c/o ulcer to her legs bilaterally, and increased pain ,br COVID-19 Coronavirus risk:travel/contact w/high risk person: No Has patient experienced Coronavirus symptoms: No Source History Provided: Patient Mode of arrival Mode of Arrival: EMS Timing Onset of Chief Complaint: 03/23/23 PMH PMH Past Medical History: Yes Past Medical History: Anemia, Anxiety, Asthma, CHF, COPD, Coronary Artery Disease, Depression, Dyslipidemia, Gout, Hypertension and Kidney Stones Past Surgical History: Yes Surgical History: Appendectomy, Cholecystectomy and Thyroidectomy Family History History of Family Medical Conditions: Yes Family Medical History: Diabetes Mellitus Social History Does patient currently use any type of tobacco product: No Have you used tobacco products in the last 12 months: No Type of Tobacco Use: None Does any household member use tobacco: No Alcohol Use: None Do you use any recreational Drugs:: No Lives With: Family Lives Where: Home Travel Risk Coronavirus risk:travel/contact w/high risk person: No Has patient experienced Coronavirus symptoms: No Infectious screening In the last 2 months have you had wt loss of >10#?: NO Have you had fever, night sweats or hemotysis?: No Have you traveled outside the country in the last 6 months?: No Isolation: Standard ROS Review of Systems Constitutional: Other (pain in left leg with swelling) Eyes: No Symptoms Reported ENTM: No Symptoms Reported Respiratoy: No Symptoms Reported Cardiovascular: No Symptoms Reported Gastrointestinal/Abdominal: No Symptoms Reported Genitourinary: No Symptoms Reported Neurological: No Symptoms Reported Musculoskeletal: Left and Leg (pain and swelling) Integumentary: Wound (left mid fraser) Hematologic/Lymphatic: No Symptoms Reported Endocrine: No Symptoms Reported Psychiatric: No Symptoms Reported PE Vital Signs Vitals: Vital Signs Temperature 98.6 F Pulse Rate 99 Respiratory Rate 22 Blood Pressure 177/74 O2 Sat by Pulse Oximetry 100 General Limitations: Physical Limitation (atalgic ambulation secondary to left leg cellulitis) General Appearance: Alert and In Distress (moderate distress) Head Head Exam: Normal Inspection Eyes Eye exam: Normal Appearance and EOMI ENT ENT Exam: Normal Exam, Normal Oropharynx and Normal External Ear Exam Neck Neck Exam: Normal Inspection Chest Chest Inspection: Normal Inspection Respiratory Respiratory Exam: Normal Lung Sounds Bilat Respiratory Exam: Bilateral: Clear to Auscultation Cardiovascular Cardiovascular Exam: Regular Rate and Normal Rhythm Abdominal Exam Abdominal Exam: Normal Inspection Extremities Extremities Exam: Normal Inspection and Full ROM Upper Extremities Shoulder Exam: Normal Inspection Arm Exam: Normal Inspection Elbow Exam: Normal Inspection Forearm Exam: Normal Inspection Hand Exam: Normal Inspection Neuromotor Exam: Normal Exam Neurosensory Exam: Normal Exam Lower Extremities Hip/Pelvis Exam: Normal Inspection Upper Leg Exam: Normal Inspection Lower Leg Exam: Tenderness, Swelling and Erythema (left lower leg) Ankle Exam: Tenderness (left ankle) and Swelling Foot/Toe Exam: Tenderness and Swelling (left foot) Gait Exam: Not Tested/Not Observed Back Back Exam: Normal Inspection and Full ROM Neurological Neurological Exam: Alert, Oriented X3 and CN II-XII Intact Psychiatric Psychiatric Exam: Depressed Skin Skin Exam: Warm, Dry, Erythema and Other (small ulcer left lower fraser) Type of Lesion: Other (urcer left mid fraser) MDM Differential Diagnosis Differential Diagnosis: Other (cellulitis left lower leg, abscess left lower leg,sepsis) COURSE Treatment Treatment: This patient remained relatively stable during the ER visit. Was found to have a lactic acid level of 2.9 on laboratory evaluation and WC BC of 15.0. The patient has an abscess and cellulitis several left lower leg she was currently on clindamycin 300 mg 3 times a day with no response. I spoke to the on-call doctor Dr. Galloway about this patient at 1805 and he said to admit the patient for further treatment of her cellulitis and sepsis. This patient was given 600 mg of Cleocin in the emergency department and had blood cultures x2 done. ROR Labs Reviewed Laboratory Results Reviewed?: Yes 03/25/23 15:30 03/25/23 15:30 Laboratory: WBC 15.0 X10^3/uL (3.6-10.0) H 03/25/23 15:30 RBC 4.09 X10^6/uL (3.5-5.4) 03/25/23 15:30 Hgb 11.7 g/dL (12.0-16.0) L 03/25/23 15:30 Hct 36.4 % (36.0-47.0) 03/25/23 15:30 MCV 89.0 fL (80.0-100.0) 03/25/23 15:30 MCH 28.5 pg (27.0-34.0) 03/25/23 15:30 MCHC 32.1 g/dL (33.0-35.0) L 03/25/23 15:30 RDW 14.6 % (11.6-16.5) 03/25/23 15:30 Plt Count 125 X10^3/uL (150.0-450.0) L 03/25/23 15:30 Plt Count Comment Decreased (ADEQUATE) A 03/25/23 15: MPV 8.6 fL (7.4-11.0) 03/25/23 15:30 Neut % (Auto) 93.6 % (42.0-75.0) H 03/25/23 15:30 Lymph % (Auto) 3.2 % (21.0-51.0) L 03/25/23 15:30 [place] % (Auto) 2.6 % (0.0-13.0) 03/25/23 15:30 Eos % (Auto) 0.2 % (0.9-2.9) L 03/25/23 15:30 Baso % (Auto) 0.4 % (0.2-1.0) 03/25/23 15:30 Neut # (Auto) 14.1 x10^3/uL (2.2-4.8) H 03/25/23 15:30 Lymph # (Auto) 0.5 X10^3/uL (1.3-2.9) L 03/25/23 15:30 [place] # (Auto) 0.4 x10^3/uL (0.3-0.8) 03/25/23 15:30 Eos # (Auto) 0.0 x10^3/uL (0.0-0.2) 03/25/23 15:30 Baso # (Auto) 0.1 X10^3/uL (0.0-0.1) 03/25/23 15:30 Absolute Nucleated RBC 0.3 /100WBC 03/25/23 15:30 Total Counted 100 03/25/23 15:30 Neutrophils % (Manual) 91 % (39-76) H 03/25/23 15:30 Lymphocytes % (Manual) 7 % (13-43) L 03/25/23 15:30 Monocytes % (Manual) 2 % (4-9) L 03/25/23 15:30 Plt Morphology Comment Normal (NORMAL) 03/25/23 15:30 RBC Morphology Normal (NORMAL) 03/25/23 15:30 Sodium 139 mmol/L (136-145) 03/25/23 15:30 Corrected Sodium TNP 03/25/23 15:30 Potassium 3.7 mmol/L (3.5-5.1) 03/25/23 15:30 Chloride 103 mmol/L (98-107) 03/25/23 15:30 Carbon Dioxide 23.7 mmol/L (21-32) 03/25/23 15:30 BUN 20 mg/dL (7-18) H 03/25/23 15:30 Creatinine 0.96 mg/dL (0.55-1.02) 03/25/23 15:30 Est GFR (MDRD) Af Amer > 60 (>60) 03/25/23 15:30 Est GFR (MDRD) Non-Af > 60 (>60) 03/25/23 15:30 Glucose 82 mg/dL (65-99) 03/25/23 15:30 Lactic Acid 2.9 mmol/L (0.4-2.0) H 03/25/23 15:30 Calcium 8.0 mg/dL (8.5-10.1) L 03/25/23 15:30 Corrected Calcium TNP 03/25/23 15:30 Total Bilirubin 0.60 mg/dL (0.2-1.0) 03/25/23 15:30 AST 30 Units/L (15-37) 03/25/23 15:30 ALT 33 Units/L (12-78) 03/25/23 15:30 Alkaline Phosphatase 140 Units/L (46-116) H 03/25/23 15:30 Total Protein 7.5 g/dL (6.4-8.2) 03/25/23 15:30 Albumin 3.8 g/dL (3.4-5.0) 03/25/23 15:30 Globulin 3.7 g/dL (2.5-4.5) 03/25/23 15:30 Albumin/Globulin Ratio 1.0 Ratio (1.1-2.1) L 03/25/23 15:30 Opioid Opioid Risk Tool Age ([place]ance box if 16-45): No History of Preadolescent Sexual Abuse: No Total: 0 Total Score Risk Category: Low Risk Copyright: [facility] predicting aberrant behaviors Discharge Plan Diagnosis Discharge Problem: Sepsis, Cellulitis of left lower extremity Discharge Plan Patient Disposition: ADMITTED INPATIENT Condition: Stable Prescriptions: No Action gabapentin 600 mg Tablet 600 mg PO QID PRN trazodone 50 mg Tablet 100 mg PO QHS pantoprazole 40 mg Tablet,Delayed Release (Dr/Ec) 40 mg PO BID isosorbide dinitrate 20 mg Tablet 40 mg PO BID Patient Comments: not taking per pt. Rx Instructions: TAKE 2 TABLETS BY MOUTH TWICE DAILY clopidogrel 75 mg Tablet 75 mg PO DAILY furosemide 40 mg tablet 40 mg PO DAILY Patient Comments: States she takes this when she needs it along with the KCL famotidine 40 mg tablet 40 mg PO HS fluticasone propion-salmeterol [Advair HFA] 115-21 mcg/actuation HFA aerosol inhaler 2 puff INHALATION BID hydroxyzine HCl 10 mg tablet 10 mg PO QPM PRN (Reason: Itching) duloxetine 60 mg capsule,delayed release(DR/EC) 60 mg PO BID pregabalin 225 mg capsule 225 mg PO BID nystatin 100,000 unit/gram Cream 1 applic TOPICAL TID buspirone 10 mg tablet 10 mg PO BID clindamycin HCl 300 mg capsule 300 mg PO TID Rx Instructions: x 7 days - started on 03/22/23 clopidogrel 75 mg tablet 75 mg PO QDAY methotrexate sodium 25 mg/mL solution 25 mg IM WEEKLY Patient Comments: [NO ORIGINAL SIG] simvastatin 40 mg tablet 40 mg PO QPM levothyroxine [Synthroid] 75 mcg tablet 75 mcg PO QDAY mupirocin 2 % ointment 1 applic TOPICAL BID-TID hydroxychloroquine 200 mg tablet 200 mg PO BID topiramate 100 mg tablet 100 mg PO BID potassium chloride 20 mEq tablet extended release 20 meq PO QDAY Health Concerns: Post Hospitalization: new medications and changes needed to prevent readmission or further decline. Pt educated and given instructions on all concerns. Plan of Treatment: Continue with present treatment and follow up plan. Pt is to keep follow up appointment as instructed and take medications as ordered. Orders to Discharge Patient Discharge Orders: Transfer (Routine); Ordered 03/25/23 Ordered By: Gilbert Adam Follow ups/Referrals Follow ups/Referrals: DOYLE LOJA [Primary Care Provider] - 3 days Instructions Stand Alone Forms: Post Hospital Follow Up Care
[2023-03-25 15:58] LABS: BASOPHILS # (AUTO) 0.1 X10^3/uL (0.0-0.1); BASOPHILS % (AUTO) 0.4 % (0.2-1.0); EOSINOPHILS % (AUTO) 0.2 % (0.9-2.9); HEMATOCRIT 36.4 % (36.0-47.0); HEMOGLOBIN 11.7 g/dL (12.0-16.0); LYMPHOCYTES # (AUTO) 0.5 X10^3/uL (1.3-2.9); LYMPHOCYTES % (AUTO) 3.2 % (21.0-51.0); MEAN CORPUSCULAR HEMOGLOBIN 28.5 pg (27.0-34.0); MEAN CORPUSCULAR HGB CONC 32.1 g/dL (33.0-35.0); MEAN PLATELET VOLUME 8.6 fL (7.4-11.0); MONOCYTES # (AUTO) 0.4 x10^3/uL (0.3-0.8); MONOCYTES % (AUTO) 2.6 % (0.0-13.0); NEUTROPHILS # (AUTO) 14.1 x10^3/uL (2.2-4.8); NEUTROPHILS % (AUTO) 93.6 % (42.0-75.0); PLATELET COUNT 125 X10^3/uL (150.0-450.0); RED BLOOD COUNT 4.09 X10^6/uL (3.5-5.4); RED CELL DISTRIBUTION WIDTH 14.6 % (11.6-16.5)
[2023-03-25 16:08] LABS: ALANINE AMINOTRANSFERASE 33 Units/L (12-78); ALBUMIN 3.8 g/dL (3.4-5.0); ALKALINE PHOSPHATASE 140 Units/L (46-116); ASPARTATE AMINO TRANSFERASE 30 Units/L (15-37); BLOOD UREA NITROGEN 20 mg/dL (7-18); CARBON DIOXIDE 23.7 mmol/L (21-32); CHLORIDE 103 mmol/L (98-107); CREATININE 0.96 mg/dL (0.55-1.02); GLUCOSE 82 mg/dL (65-99); POTASSIUM 3.7 mmol/L (3.5-5.1); SODIUM 139 mmol/L (136-145); TOTAL PROTEIN 7.5 g/dL (6.4-8.2); eGFR NON BLACK RACES > 60 (>60)
[2023-03-25 16:29] LABS: PLATELET MORPHOLOGY COMMENT NORMAL (NORMAL)
[2023-03-25] MEDS ORDERED: CLEOCIN 600 MG IV PREMIX 600 MG/50 ML BAG IV ONE (17:02)
[2023-03-25] MEDS: CLEOCIN 600 MG IV PREMIX 600 MG/50 ML BAG IV SCH ×2 (17:06→21:36)
[2023-03-25] MEDS ORDERED: ATARAX TAB 10 MG PO PRN (20:43)
[2023-03-25] MEDS ORDERED: NEURONTIN TAB 600 MG PO PRN (20:43)
[2023-03-25] MEDS ORDERED: PATIENT'S HOME MEDICATION (Fluticasone Propion-Salmeterol [Advair Hfa] 115-21 mcg/actuatio IN SCH (21:00)
[2023-03-25] MEDS ORDERED: PREGABALIN 225 MG PO SCH (21:00)
[2023-03-25] MEDS: LYRICA CAP 150 mg PO SCH (21:35)
[2023-03-25] MEDS: ISOSORBIDE DINITRATE PO SCH (21:35)
[2023-03-25] MEDS: TOPAMAX TAB 100 MG PO SCH (21:35)
[2023-03-25] MEDS: PROTONIX TAB 40 MG PO SCH (21:35)
[2023-03-25] MEDS: ZOCOR TAB 40 MG PO SCH (21:35)
[2023-03-25] MEDS: PLAQUENIL PO SCH (21:35)
[2023-03-25] MEDS: PEPCID TAB 40 MG PO SCH (21:35)
[2023-03-25] MEDS: DESYREL PO SCH (21:35)
[2023-03-25] MEDS: CYMBALTA PO SCH (21:35)
[2023-03-25] MEDS: BUSPAR PO SCH (21:35)
[2023-03-25] MEDS ORDERED: CLEOCIN 600 MG IV PREMIX 600 MG/50 ML BAG IV SCH (22:00)
[2023-03-25] MEDS: NORCO 5/325 MG TAB PO PRN (22:05)
[2023-03-26] MEDS: CLEOCIN 600 MG IV PREMIX 600 MG/50 ML BAG IV SCH ×3 (05:03→21:00)
[2023-03-26 05:21] LABS: BASOPHILS % (AUTO) 0.1 % (0.2-1.0); EOSINOPHILS % (AUTO) 0.1 % (0.9-2.9); HEMATOCRIT 30.5 % (36.0-47.0); LYMPHOCYTES % (AUTO) 8.6 % (21.0-51.0); MEAN CORPUSCULAR HEMOGLOBIN 28.5 pg (27.0-34.0); MEAN CORPUSCULAR HGB CONC 32.8 g/dL (33.0-35.0); MEAN PLATELET VOLUME 8.4 fL (7.4-11.0); MONOCYTES # (AUTO) 0.8 x10^3/uL (0.3-0.8); MONOCYTES % (AUTO) 6.6 % (0.0-13.0); NEUTROPHILS # (AUTO) 9.8 x10^3/uL (2.2-4.8); NEUTROPHILS % (AUTO) 84.6 % (42.0-75.0); PLATELET COUNT 157 X10^3/uL (150.0-450.0); RED BLOOD COUNT 3.51 X10^6/uL (3.5-5.4); RED CELL DISTRIBUTION WIDTH 14.9 % (11.6-16.5); WHITE BLOOD COUNT 11.6 X10^3/uL (3.6-10.0)
[2023-03-26 05:39] LABS: ALANINE AMINOTRANSFERASE 24 Units/L (12-78); ALBUMIN 2.8 g/dL (3.4-5.0); ALKALINE PHOSPHATASE 107 Units/L (46-116); ASPARTATE AMINO TRANSFERASE 21 Units/L (15-37); BLOOD UREA NITROGEN 17 mg/dL (7-18); CALCIUM 7.7 mg/dL (8.5-10.1); CHLORIDE 105 mmol/L (98-107); COR CA(FOR HYPOALB) 8.7 mg/dL (8.5-10.1); CREATININE 0.79 mg/dL (0.55-1.02); GLUCOSE 97 mg/dL (65-99); POTASSIUM 3.3 mmol/L (3.5-5.1); SODIUM 137 mmol/L (136-145); eGFR NON BLACK RACES > 60 (>60)
[2023-03-26] MEDS ORDERED: CONSULT PHARMACY - POTASSIUM & MAGNESIUM XX SCH (07:00)
[2023-03-26] MEDS ORDERED: PLAVIX PO SCH (09:00)
[2023-03-26] MEDS: LASIX PO SCH (10:08)
[2023-03-26] MEDS: MAG-OX TAB PO SCH ×2 (10:09→11:20)
[2023-03-26] MEDS: ISOSORBIDE DINITRATE PO SCH ×2 (10:09→20:59)
[2023-03-26] MEDS: PROTONIX TAB 40 MG PO SCH ×2 (10:10→21:00)
[2023-03-26] MEDS: LYRICA CAP 150 mg PO SCH ×2 (10:10→20:59)
[2023-03-26] MEDS: TOPAMAX TAB 100 MG PO SCH ×2 (10:10→20:59)
[2023-03-26] MEDS: SYNTHROID 75 mcg TAB PO SCH (10:10)
[2023-03-26] MEDS: BUSPAR PO SCH ×2 (10:10→21:00)
[2023-03-26] MEDS: K-DUR TAB 20 MEQ PO SCH ×3 (10:11→14:00)
[2023-03-26] MEDS: CYMBALTA PO SCH ×2 (10:11→20:59)
[2023-03-26] MEDS: PLAQUENIL PO SCH ×2 (10:11→20:59)
[2023-03-26] MEDS: PLAVIX PO SCH (10:11)
[2023-03-26] MEDS: NORCO 5/325 MG TAB PO PRN ×2 (12:24→21:00)
[2023-03-26] MEDS: LOVENOX INJ 40 MG SYR SC SCH (13:00)
--- NOTE | 2023-03-26 13:25 | DR.H&P ---
H&P History & Physical for Day of: H&P Date: 03/26/23 Allergies Allergies Allergy/AdvReac Type Severity Reaction Status Date / Time atorvastatin [From Lipitor] Allergy Unknown Verified 03/25/23 18:49 budesonide [From Symbicort] Allergy Unknown Verified 03/25/23 18:49 ciprofloxacin [From Cipro] Allergy Unknown Verified 03/25/23 18:49 formoterol [From Symbicort] Allergy Unknown Verified 03/25/23 18:49 shellfish derived Allergy Unknown Verified 03/25/23 18:49 sulfacetamide Allergy Unknown Verified 03/25/23 18:49 Sulfa (Sulfonamide Allergy Verified 03/25/23 18:49 Antibiotics) [SULFA] History of Present Illness History of Present Illness: Patient is a 67-year-old female with a past medical history of hypertension, COPD, hyperlipidemia, presenting with left leg that is red and "hot". She reports that symptoms have been going on for the past week and have been getting worse with the redness spreading and swelling. Labs: WBC 11.6, hemoglobin 10, platelets 157, sodium 137, potassium 3.3, creatinine 0.79, glucose 97. Blood cultures pending. On exam patient's left lower extremity is erythematous and has edema. We will get margins marked. Ultrasound ordered to rule out DVT however bioprocessing manufacturing technician is not in on the weekend and will it will be done on Tuesday. She is on Lovenox for DVT prophylaxis. Continue IV antibiotics clindamycin. Restart home medications. Continue to closely monitor and follow-up labs/images. Past Medical History Past Medical History: Anemia, Anxiety, Asthma, CHF, COPD, Coronary Artery Disease, Depression, Dyslipidemia, Gout, Hypertension and Kidney Stones Past Surgical History Surgical History: Appendectomy, Cholecystectomy, Thyroidectomy and Other Family History Family Medical History: Diabetes Mellitus Social History Does patient currently use any type of tobacco product: No Have you used tobacco products in the last 12 months: No Type of Tobacco Use: None Does any household member use tobacco: No Alcohol Use: None Drug Use: None Medications Home Medications: Home Medications Medication Instructions Recorded Confirmed Type clopidogrel 75 mg tablet 75 mg PO DAILY 09/15/19 03/25/23 History gabapentin 600 mg tablet 600 mg PO QID PRN 09/15/19 03/25/23 History isosorbide dinitrate 20 mg tablet 40 mg PO BID 09/15/19 03/25/23 History pantoprazole 40 mg tablet,delayed 40 mg PO BID 09/15/19 03/25/23 History release trazodone 50 mg tablet 100 mg PO QHS 09/15/19 03/25/23 History furosemide 40 mg tablet 40 mg PO DAILY 02/10/21 03/25/23 History famotidine 40 mg tablet 40 mg PO HS 02/13/21 03/25/23 History fluticasone propionate 115 2 puff inhalation BID 02/13/21 03/25/23 History mcg-salmeterol 21 mcg/actuation HFA inhaler (Advair HFA) buspirone 10 mg tablet 10 mg PO BID 11/10/22 03/25/23 History duloxetine 60 mg capsule,delayed 60 mg PO BID 11/10/22 03/25/23 History release hydroxyzine HCl 10 mg tablet 10 mg PO QPM PRN Itching 11/10/22 03/25/23 History nystatin 100,000 unit/gram topical 1 applic topical TID 11/10/22 03/25/23 History cream pregabalin 225 mg capsule 225 mg PO BID 11/10/22 03/25/23 History clindamycin HCl 300 mg capsule 300 mg PO TID 03/25/23 03/25/23 History clopidogrel 75 mg tablet 75 mg PO QDAY 03/25/23 03/25/23 History hydroxychloroquine 200 mg tablet 200 mg PO BID 03/25/23 03/25/23 History levothyroxine 75 mcg tablet 75 mcg PO QDAY 03/25/23 03/25/23 History (Synthroid) methotrexate sodium 25 mg/mL 25 mg IM WEEKLY 03/25/23 03/25/23 History injection solution mupirocin 2 % topical ointment 1 applic topical BID-TID 03/25/23 03/25/23 History potassium chloride 20 mEq 20 meq PO QDAY 03/25/23 03/25/23 History tablet,extended release simvastatin 40 mg tablet 40 mg PO QPM 03/25/23 03/25/23 History topiramate 100 mg tablet 100 mg PO BID 03/25/23 03/25/23 History Labs 03/26/23 04:45 03/26/23 04:45 Labs: Laboratory WBC 11.6 X10^3/uL (3.6-10.0) H 03/26/23 04:45 RBC 3.51 X10^6/uL (3.5-5.4) 03/26/23 04:45 Hgb 10.0 g/dL (12.0-16.0) L 03/26/23 04:45 Hct 30.5 % (36.0-47.0) L 03/26/23 04:45 MCV 87.0 fL (80.0-100.0) 03/26/23 04:45 MCH 28.5 pg (27.0-34.0) 03/26/23 04:45 MCHC 32.8 g/dL (33.0-35.0) L 03/26/23 04:45 RDW 14.9 % (11.6-16.5) 03/26/23 04:45 Plt Count 157 X10^3/uL (150.0-450.0) 03/26/23 04:45 Plt Count Comment Decreased (ADEQUATE) A 03/25/23 15:30 MPV 8.4 fL (7.4-11.0) 03/26/23 04:45 Neut % (Auto) 84.6 % (42.0-75.0) H 03/26/23 04:45 Lymph % (Auto) 8.6 % (21.0-51.0) L 03/26/23 04:45 [place] % (Auto) 6.6 % (0.0-13.0) 03/26/23 04:45 Eos % (Auto) 0.1 % (0.9-2.9) L 03/26/23 04:45 Baso % (Auto) 0.1 % (0.2-1.0) L 03/26/23 04:45 Neut # (Auto) 9.8 x10^3/uL (2.2-4.8) H 03/26/23 04:45 Lymph # (Auto) 1.0 X10^3/uL (1.3-2.9) L 03/26/23 04:45 [place] # (Auto) 0.8 x10^3/uL (0.3-0.8) 03/26/23 04:45 Eos # (Auto) 0.0 x10^3/uL (0.0-0.2) 03/26/23 04:45 Baso # (Auto) 0.0 X10^3/uL (0.0-0.1) 03/26/23 04:45 Absolute Nucleated RBC 0.0 /100WBC 03/26/23 04:45 Total Counted 100 03/25/23 15:30 Neutrophils % (Manual) 91 % (39-76) H 03/25/23 15:30 Lymphocytes % (Manual) 7 % (13-43) L 03/25/23 15:30 Monocytes % (Manual) 2 % (4-9) L 03/25/23 15:30 Plt Morphology Comment Normal (NORMAL) 03/25/23 15:30 RBC Morphology Normal (NORMAL) 03/25/23 15:30 Sodium 137 mmol/L (136-145) 03/26/23 04:45 Corrected Sodium TNP 03/26/23 04:45 Potassium 3.3 mmol/L (3.5-5.1) L 03/26/23 04:45 Chloride 105 mmol/L (98-107) 03/26/23 04:45 Carbon Dioxide 24.0 mmol/L (21-32) 03/26/23 04:45 BUN 17 mg/dL (7-18) 03/26/23 04:45 Creatinine 0.79 mg/dL (0.55-1.02) 03/26/23 04:45 Est GFR (MDRD) Af Amer > 60 (>60) 03/26/23 04:45 Est GFR (MDRD) Non-Af > 60 (>60) 03/26/23 04:45 Glucose 97 mg/dL (65-99) 03/26/23 04:45 Lactic Acid 1.2 mmol/L (0.4-2.0) 03/25/23 19:28 Calcium 7.7 mg/dL (8.5-10.1) L 03/26/23 04:45 Corrected Calcium 8.7 mg/dL (8.5-10.1) 03/26/23 04:45 Magnesium 1.8 mg/dL (2.0-2.9) L 03/26/23 04:45 Total Bilirubin 0.80 mg/dL (0.2-1.0) 03/26/23 04:45 AST 21 Units/L (15-37) 03/26/23 04:45 ALT 24 Units/L (12-78) 03/26/23 04:45 Alkaline Phosphatase 107 Units/L (46-116) 03/26/23 04:45 Total Protein 6.0 g/dL (6.4-8.2) L 03/26/23 04:45 Albumin 2.8 g/dL (3.4-5.0) L 03/26/23 04:45 Globulin 3.2 g/dL (2.5-4.5) 03/26/23 04:45 Albumin/Globulin Ratio 0.9 Ratio (1.1-2.1) L 03/26/23 04:45 Review of Systems Constitutional: No Symptoms Reported Eyes: No Symptoms Reported ENT: No Symptoms Reported Respiratory: No Symptoms Reported Cardiovascular: No Symptoms Reported Gastrointestinal: No Symptoms Reported Genitourinary: No Symptoms Reported Musculoskeletal: No Symptoms Reported Skin: Other (redness left lower extremity) Neurological: No Symptoms Reported Physical Exam Vital Signs: Vital Signs Temperature 99.1 F Temperature 99.2 F Pulse Rate [Bilateral Radial] 78 Pulse Rate [Bilateral Radial] 86 Respiratory Rate 20 Respiratory Rate 20 Respiratory Rate 20 Blood Pressure [Right Arm] 113/54 Blood Pressure [Right Arm] 122/62 O2 Sat by Pulse Oximetry 97 O2 Sat by Pulse Oximetry 99 Oriented: Normal Eyes: Normal Ear: Normal Nose: Normal Throat: Normal Respiratory: Clear Throughout Cardiovascular: Normal : Normal Auscultation: Bowel Sounds: Normal Palpation: Normal Tenderness: Normal Skin: Normal Musculoskeletal: Leg (LLE: 2+ pitting edema, erythema) Psychiatric: Normal Mood Description: Calm and Appropriate Affect: Normal Speech Pattern: Clear and Appropriate Assessment/Plan (1) Cellulitis of left lower extremity: Status: Acute Plan: IV clindamycin Blood culture pending U/S ordered Review H&P Reviewed: Yes Patient was examined?: Yes
[2023-03-26] MEDS ORDERED: NS 250 ML IV 250 ML IV PRN (14:27)
[2023-03-26] MEDS ORDERED: NS 250 ML IV 250 ML IV ONE (14:35)
[2023-03-26] MEDS: DESYREL PO SCH (20:59)
[2023-03-26] MEDS: PEPCID TAB 40 MG PO SCH (20:59)
[2023-03-26] MEDS: ZOCOR TAB 40 MG PO SCH (20:59)
[2023-03-26] MEDS: PROVENTIL NEB TX 0.083% 2.5MG/ 3ML NEB SCH (22:16)
[2023-03-26] MEDS: TYLENOL 325 MG TAB PO PRN (22:30)
[2023-03-27 05:39] LABS: BASOPHILS % (AUTO) 0.2 % (0.2-1.0); EOSINOPHILS # (AUTO) 0.2 x10^3/uL (0.0-0.2); EOSINOPHILS % (AUTO) 2.4 % (0.9-2.9); HEMATOCRIT 27.9 % (36.0-47.0); HEMOGLOBIN 9.1 g/dL (12.0-16.0); LYMPHOCYTES # (AUTO) 0.9 X10^3/uL (1.3-2.9); MEAN CORPUSCULAR HEMOGLOBIN 28.6 pg (27.0-34.0); MEAN CORPUSCULAR HGB CONC 32.8 g/dL (33.0-35.0); MEAN CORPUSCULAR VOLUME 87.2 fL (80.0-100.0); MEAN PLATELET VOLUME 8.6 fL (7.4-11.0); MONOCYTES # (AUTO) 0.6 x10^3/uL (0.3-0.8); MONOCYTES % (AUTO) 8.2 % (0.0-13.0); NEUTROPHILS # (AUTO) 6.2 x10^3/uL (2.2-4.8); NEUTROPHILS % (AUTO) 78.2 % (42.0-75.0); PLATELET COUNT 137 X10^3/uL (150.0-450.0); RED CELL DISTRIBUTION WIDTH 14.5 % (11.6-16.5); WHITE BLOOD COUNT 7.9 X10^3/uL (3.6-10.0)
[2023-03-27] MEDS: CLEOCIN 600 MG IV PREMIX 600 MG/50 ML BAG IV SCH ×3 (05:43→21:22)
[2023-03-27 05:51] LABS: ALANINE AMINOTRANSFERASE 18 Units/L (12-78); ALBUMIN 2.5 g/dL (3.4-5.0); ALKALINE PHOSPHATASE 94 Units/L (46-116); ASPARTATE AMINO TRANSFERASE 14 Units/L (15-37); BLOOD UREA NITROGEN 16 mg/dL (7-18); CALCIUM 7.6 mg/dL (8.5-10.1); CARBON DIOXIDE 22.8 mmol/L (21-32); CHLORIDE 107 mmol/L (98-107); COR CA(FOR HYPOALB) 8.8 mg/dL (8.5-10.1); GLUCOSE 100 mg/dL (65-99); MAGNESIUM 1.8 mg/dL (2.0-2.9); POTASSIUM 3.6 mmol/L (3.5-5.1); SODIUM 138 mmol/L (136-145); TOTAL PROTEIN 5.7 g/dL (6.4-8.2); eGFR NON BLACK RACES > 60 (>60)
[2023-03-27] MEDS ORDERED: CONSULT PHARMACY - POTASSIUM & MAGNESIUM XX SCH (07:00)
[2023-03-27 07:40] VITALS: BMI 46.5
[2023-03-27] MEDS: PROVENTIL NEB TX 0.083% 2.5MG/ 3ML NEB SCH ×4 (09:01→20:03)
[2023-03-27] MEDS: MAG-OX TAB PO SCH ×2 (09:45→12:24)
[2023-03-27] MEDS: TOPAMAX TAB 100 MG PO SCH ×2 (09:45→20:11)
[2023-03-27] MEDS: LOVENOX INJ 40 MG SYR SC SCH (09:45)
[2023-03-27] MEDS: PLAVIX PO SCH (09:45)
[2023-03-27] MEDS: ISOSORBIDE DINITRATE PO SCH ×2 (09:45→20:11)
[2023-03-27] MEDS: BUSPAR PO SCH ×2 (09:45→20:12)
[2023-03-27] MEDS: NORCO 5/325 MG TAB PO PRN ×2 (09:45→20:11)
[2023-03-27] MEDS: PROTONIX TAB 40 MG PO SCH ×2 (09:45→20:11)
[2023-03-27] MEDS: LYRICA CAP 150 mg PO SCH ×2 (09:45→20:11)
[2023-03-27] MEDS: K-DUR TAB 20 MEQ PO SCH (09:45)
[2023-03-27] MEDS: SYNTHROID 75 mcg TAB PO SCH (09:45)
[2023-03-27] MEDS: CYMBALTA PO SCH ×2 (09:45→20:11)
[2023-03-27] MEDS: PLAQUENIL PO SCH ×2 (09:46→20:11)
[2023-03-27] MEDS ORDERED: K-DUR TAB 20 MEQ PO SCH (11:00)
[2023-03-27] MEDS: LASIX PO SCH (11:32)
--- NOTE | 2023-03-27 12:16 | PCM.PROG ---
Progress Note Progress Note for Day of Date of Exam: 03/27/23 Subjective Subjective: Patient is a 67-year-old female with a past medical history of hypertension, COPD, hyperlipidemia, admitted for left lower extremity cellulitis and ulcer. This morning she reports improvement in her symptoms. No acute events overnight. Labs: WBC 7.9, hemoglobin 9.1, platelets 137, sodium 138, potassium 3.6, creatinine 0.80, glucose 100. Blood cultures pending. On exam erythema and edema improving. Ultrasound ordered to rule out DVT however experimental technician is not in on the weekend and will be performed on Tuesday. She is on Lovenox for DVT prophylaxis. Continue IV antibiotics clindamycin. Will consult general surgery-Dr Juárez for evaluation of leg ulcer. Home medications have been resu med. Otherwise, continue with current treatment plan. Continue to closely monitor and follow-up labs/images. Past Medical Family Social History Allergies: Allergies atorvastatin [From Lipitor] Allergy (Unknown, Verified 03/25/23 18:49) Reason: Drug allergy budesonide [From Symbicort] Allergy (Unknown, Verified 03/25/23 18:49) Reason: Drug allergy ciprofloxacin [From Cipro] Allergy (Unknown, Verified 03/25/23 18:49) Reason: Drug allergy formoterol [From Symbicort] Allergy (Unknown, Verified 03/25/23 18:49) Reason: Drug allergy shellfish derived Allergy (Unknown, Verified 03/25/23 18:49) sulfacetamide Allergy (Unknown, Verified 03/25/23 18:49) Reason: Drug allergy Sulfa (Sulfonamide Antibiotics) [SULFA] Allergy (Verified 03/25/23 18:49) Review of Systems ROS changes noted: see HPI Vital Signs and I&O's Vital Signs: Vital Signs Temperature 98.1 F Pulse Rate [Bilateral Radial] 83 Respiratory Rate 18 Blood Pressure [Right Arm] 130/60 O2 Sat by Pulse Oximetry 97 Intake and Output: Intake & Output 03/24/23 03/25/23 03/26/23 03/27/23 23:59 23:59 23:59 23:59 Intake Total 234 / 234 1429 / 1429 690 / 690 Balance 234 / 234 1429 / 1429 690 / 690 Physical Exam Oriented: Normal Eyes: Normal Ear: Normal Nose: Normal Throat: Normal Respiratory: Normal Cardiovascular: Normal : Normal Auscultation: Bowel Sounds: Normal Tenderness: Normal Skin: Normal Musculoskeletal: Leg (LLE: 1+ pitting edema, erythema) Psychiatric: Normal Mood Description: Calm and Appropriate Affect: Normal Speech Pattern: Clear and Appropriate Laboratory and Diagnostics 03/27/23 04:55 03/27/23 04:55 Labs: 03/25/23 15:30 Blood Blood Culture - Preliminary 03/25/23 15:16 Blood Blood Culture - Preliminary Laboratory WBC 7.9 X10^3/uL (3.6-10.0) 03/27/23 04:55 RBC 3.20 X10^6/uL (3.5-5.4) L 03/27/23 04:55 Hgb 9.1 g/dL (12.0-16.0) L 03/27/23 04:55 Hct 27.9 % (36.0-47.0) L 03/27/23 04:55 MCV 87.2 fL (80.0-100.0) 03/27/23 04:55 MCH 28.6 pg (27.0-34.0) 03/27/23 04:55 MCHC 32.8 g/dL (33.0-35.0) L 03/27/23 04:55 RDW 14.5 % (11.6-16.5) 03/27/23 04:55 Plt Count 137 X10^3/uL (150.0-450.0) L 03/27/23 04:55 Plt Count Comment Decreased (ADEQUATE) A 03/25/23 15:30 MPV 8.6 fL (7.4-11.0) 03/27/23 04:55 Neut % (Auto) 78.2 % (42.0-75.0) H 03/27/23 04:55 Lymph % (Auto) 11.0 % (21.0-51.0) L 03/27/23 04:55 [place] % (Auto) 8.2 % (0.0-13.0) 03/27/23 04:55 Eos % (Auto) 2.4 % (0.9-2.9) 03/27/23 04:55 Baso % (Auto) 0.2 % (0.2-1.0) 03/27/23 04:55 Neut # (Auto) 6.2 x10^3/uL (2.2-4.8) H 03/27/23 04:55 Lymph # (Auto) 0.9 X10^3/uL (1.3-2.9) L 03/27/23 04:55 [place] # (Auto) 0.6 x10^3/uL (0.3-0.8) 03/27/23 04:55 Eos # (Auto) 0.2 x10^3/uL (0.0-0.2) 03/27/23 04:55 Baso # (Auto) 0.0 X10^3/uL (0.0-0.1) 03/27/23 04:55 Absolute Nucleated RBC 0.0 /100WBC 03/27/23 04:55 Total Counted 100 03/25/23 15:30 Neutrophils % (Manual) 91 % (39-76) H 03/25/23 15:30 Lymphocytes % (Manual) 7 % (13-43) L 03/25/23 15:30 Monocytes % (Manual) 2 % (4-9) L 03/25/23 15:30 Plt Morphology Comment Normal (NORMAL) 03/25/23 15:30 RBC Morphology Normal (NORMAL) 03/25/23 15:30 Sodium 138 mmol/L (136-145) 03/27/23 04:55 Corrected Sodium TNP 03/27/23 04:55 Potassium 3.6 mmol/L (3.5-5.1) 03/27/23 04:55 Chloride 107 mmol/L (98-107) 03/27/23 04:55 Carbon Dioxide 22.8 mmol/L (21-32) 03/27/23 04:55 BUN 16 mg/dL (7-18) 03/27/23 04:55 Creatinine 0.80 mg/dL (0.55-1.02) 03/27/23 04:55 Est GFR (MDRD) Af Amer > 60 (>60) 03/27/23 04:55 Est GFR (MDRD) Non-Af > 60 (>60) 03/27/23 04:55 Glucose 100 mg/dL (65-99) H 03/27/23 04:55 Lactic Acid 1.2 mmol/L (0.4-2.0) 03/25/23 19:28 Calcium 7.6 mg/dL (8.5-10.1) L 03/27/23 04:55 Corrected Calcium 8.8 mg/dL (8.5-10.1) 03/27/23 04:55 Magnesium 1.8 mg/dL (2.0-2.9) L 03/27/23 04:55 Total Bilirubin 0.40 mg/dL (0.2-1.0) 03/27/23 04:55 AST 14 Units/L (15-37) L 03/27/23 04:55 ALT 18 Units/L (12-78) 03/27/23 04:55 Alkaline Phosphatase 94 Units/L (46-116) 03/27/23 04:55 Total Protein 5.7 g/dL (6.4-8.2) L 03/27/23 04:55 Albumin 2.5 g/dL (3.4-5.0) L 03/27/23 04:55 Globulin 3.2 g/dL (2.5-4.5) 03/27/23 04:55 Albumin/Globulin Ratio 0.8 Ratio (1.1-2.1) L 03/27/23 04:55 Plan (1) Cellulitis of left lower extremity: Status: Acute Plan: IV clindamycin Blood culture pending U/S ordered
[2023-03-27] MEDS: ZOCOR TAB 40 MG PO SCH (20:11)
[2023-03-27] MEDS: PEPCID TAB 40 MG PO SCH (20:11)
[2023-03-27] MEDS: DESYREL PO SCH (20:11)
[2023-03-28] MEDS: TYLENOL 325 MG TAB PO PRN (00:36)
[2023-03-28] MEDS: CLEOCIN 600 MG IV PREMIX 600 MG/50 ML BAG IV SCH ×3 (05:02→21:09)
[2023-03-28 05:33] LABS: BASOPHILS % (AUTO) 0.2 % (0.2-1.0); EOSINOPHILS # (AUTO) 0.3 x10^3/uL (0.0-0.2); EOSINOPHILS % (AUTO) 4.7 % (0.9-2.9); HEMATOCRIT 29.2 % (36.0-47.0); HEMOGLOBIN 9.6 g/dL (12.0-16.0); LYMPHOCYTES % (AUTO) 14.5 % (21.0-51.0); MEAN CORPUSCULAR HEMOGLOBIN 28.8 pg (27.0-34.0); MEAN CORPUSCULAR HGB CONC 32.9 g/dL (33.0-35.0); MEAN CORPUSCULAR VOLUME 87.4 fL (80.0-100.0); MEAN PLATELET VOLUME 8.7 fL (7.4-11.0); MONOCYTES # (AUTO) 0.6 x10^3/uL (0.3-0.8); NEUTROPHILS # (AUTO) 5.1 x10^3/uL (2.2-4.8); NEUTROPHILS % (AUTO) 72.6 % (42.0-75.0); PLATELET COUNT 155 X10^3/uL (150.0-450.0); RED BLOOD COUNT 3.34 X10^6/uL (3.5-5.4); RED CELL DISTRIBUTION WIDTH 14.5 % (11.6-16.5); WHITE BLOOD COUNT 7.1 X10^3/uL (3.6-10.0)
[2023-03-28 05:42] LABS: ALANINE AMINOTRANSFERASE 19 Units/L (12-78); ALBUMIN 2.7 g/dL (3.4-5.0); ALKALINE PHOSPHATASE 99 Units/L (46-116); ASPARTATE AMINO TRANSFERASE 13 Units/L (15-37); BLOOD UREA NITROGEN 12 mg/dL (7-18); CALCIUM 8.1 mg/dL (8.5-10.1); CARBON DIOXIDE 23.4 mmol/L (21-32); CHLORIDE 107 mmol/L (98-107); COR CA(FOR HYPOALB) 9.1 mg/dL (8.5-10.1); GLUCOSE 98 mg/dL (65-99); MAGNESIUM 1.9 mg/dL (2.0-2.9); POTASSIUM 4.1 mmol/L (3.5-5.1); SODIUM 137 mmol/L (136-145); TOTAL PROTEIN 6.6 g/dL (6.4-8.2); eGFR NON BLACK RACES > 60 (>60)
[2023-03-28] MEDS: LYRICA CAP 150 mg PO SCH ×2 (09:01→20:30)
[2023-03-28] MEDS: SYNTHROID 75 mcg TAB PO SCH (09:01)
[2023-03-28] MEDS: CYMBALTA PO SCH ×2 (09:01→20:29)
[2023-03-28] MEDS: K-DUR TAB 20 MEQ PO SCH (09:01)
[2023-03-28] MEDS: LASIX PO SCH (09:01)
[2023-03-28] MEDS: PLAQUENIL PO SCH ×2 (09:01→20:30)
[2023-03-28] MEDS: TOPAMAX TAB 100 MG PO SCH ×2 (09:01→20:11)
[2023-03-28] MEDS: PROTONIX TAB 40 MG PO SCH ×2 (09:01→21:00)
[2023-03-28] MEDS: BUSPAR PO SCH ×2 (09:01→21:17)
[2023-03-28] MEDS: PLAVIX PO SCH (09:01)
[2023-03-28] MEDS: LOVENOX INJ 40 MG SYR SC SCH (09:02)
[2023-03-28] MEDS: ISOSORBIDE DINITRATE PO SCH ×2 (09:09→20:30)
[2023-03-28] MEDS: PROVENTIL NEB TX 0.083% 2.5MG/ 3ML NEB SCH ×2 (10:56→13:18)
--- NOTE | 2023-03-28 14:56 | VAS ---
EXAM:LOWER EXT VENOUS, BILATERALHISTORY:; REDNESS/CELLULITIS TO LLECOMPARISON:None available.TECHNIQUE:Multiple carpenter scale and color flow Doppler images of the deep venous system were obtained of the right and left lower extremity.FINDINGS:The deep venous system of the right and left lower extremities were evaluated from the level of the common femoral vein through the popliteal vein. Normal color flow and augmentation can be observed. In addition, normal compression is seen throughout the deep venous system.IMPRESSION:Negative for DVT.THIS IS AN ELECTRONICALLY VERIFIED FINAL [id number]/[id number] 2:53 PM - Electronically signed by Lucian Rasheed MD
--- NOTE | 2023-03-28 16:52 | PCM.PROG ---
Progress Note Progress Note for Day of Date of Exam: 03/28/23 Subjective Subjective: Patient is a 67-year-old female with a past medical history of hypertension, COPD, hyperlipidemia, admitted for left lower extremity cellulitis and ulcer. This morning she is resting comfortably in bed. No acute events overnight. Reports improvement in her left leg. Labs: WBC 7.1, hemoglobin 9.6, platelets 155, sodium 137, potassium 4.1, creatinine 0.80, glucose 98. Blood cultures no growth to date. On exam erythema and edema continues to improve. Ultrasound ordered to rule out DVT. She is on Lovenox for DVT prophylaxis. Continue IV antibiotics clindamycin. Will consult general surgery-Dr Juárez for evaluation of leg ulcer. Home medications have been resumed. Otherwise, continue with current treatment plan. Continue to closely monitor and follow-up labs/images. Past Medical Family Social History Allergies: Allergies atorvastatin [From Lipitor] Allergy (Unknown, Verified 03/25/23 18:49) Reason: Drug allergy budesonide [From Symbicort] Allergy (Unknown, Verified 03/25/23 18:49) Reason: Drug allergy ciprofloxacin [From Cipro] Allergy (Unknown, Verified 03/25/23 18:49) Reason: Drug allergy formoterol [From Symbicort] Allergy (Unknown, Verified 03/25/23 18:49) Reason: Drug allergy shellfish derived Allergy (Unknown, Verified 03/25/23 18:49) sulfacetamide Allergy (Unknown, Verified 03/25/23 18:49) Reason: Drug allergy Sulfa (Sulfonamide Antibiotics) [SULFA] Allergy (Verified 03/25/23 18:49) Review of Systems ROS changes noted: see HPI Vital Signs and I&O's Vital Signs: Vital Signs Temperature 97.7 F Temperature 97.7 F Pulse Rate [Bilateral Radial] 73 Pulse Rate [Bilateral Radial] 74 Respiratory Rate 20 Respiratory Rate 18 Blood Pressure [Right Arm] 126/58 Blood Pressure [Right Arm] 135/63 O2 Sat by Pulse Oximetry 98 O2 Sat by Pulse Oximetry 100 Intake and Output: Intake & Output 03/25/23 03/26/23 03/27/23 03/28/23 23:59 23:59 23:59 23:59 Intake Total 234 / 234 1429 / 1429 2151 / 2151 1096 / 1096 Balance 234 / 234 1429 / 1429 2151 / 2151 1096 / 1096 Physical Exam Oriented: Normal Eyes: Normal Ear: Normal Nose: Normal Throat: Normal Respiratory: Normal Cardiovascular: Normal : Normal Auscultation: Bowel Sounds: Normal Tenderness: Normal Skin: Normal Musculoskeletal: Leg (LLE: 1+ pitting edema, erythema) Psychiatric: Normal Mood Description: Calm and Appropriate Affect: Normal Speech Pattern: Clear and Appropriate Laboratory and Diagnostics 03/28/23 04:50 03/28/23 04:50 Labs: 03/25/23 15:30 Blood Blood Culture - Preliminary 03/25/23 15:16 Blood Blood Culture - Preliminary Laboratory WBC 7.1 X10^3/uL (3.6-10.0) 03/28/23 04:50 RBC 3.34 X10^6/uL (3.5-5.4) L 03/28/23 04:50 Hgb 9.6 g/dL (12.0-16.0) L 03/28/23 04:50 Hct 29.2 % (36.0-47.0) L 03/28/23 04:50 MCV 87.4 fL (80.0-100.0) 03/28/23 04:50 MCH 28.8 pg (27.0-34.0) 03/28/23 04:50 MCHC 32.9 g/dL (33.0-35.0) L 03/28/23 04:50 RDW 14.5 % (11.6-16.5) 03/28/23 04:50 Plt Count 155 X10^3/uL (150.0-450.0) 03/28/23 04:50 Plt Count Comment Decreased (ADEQUATE) A 03/25/23 15:30 MPV 8.7 fL (7.4-11.0) 03/28/23 04:50 Neut % (Auto) 72.6 % (42.0-75.0) 03/28/23 04:50 Lymph % (Auto) 14.5 % (21.0-51.0) L 03/28/23 04:50 [place] % (Auto) 8.0 % (0.0-13.0) 03/28/23 04:50 Eos % (Auto) 4.7 % (0.9-2.9) H 03/28/23 04:50 Baso % (Auto) 0.2 % (0.2-1.0) 03/28/23 04:50 Neut # (Auto) 5.1 x10^3/uL (2.2-4.8) H 03/28/23 04:50 Lymph # (Auto) 1.0 X10^3/uL (1.3-2.9) L 03/28/23 04:50 [place] # (Auto) 0.6 x10^3/uL (0.3-0.8) 03/28/23 04:50 Eos # (Auto) 0.3 x10^3/uL (0.0-0.2) H 03/28/23 04:50 Baso # (Auto) 0.0 X10^3/uL (0.0-0.1) 03/28/23 04:50 Absolute Nucleated RBC 0.1 /100WBC 03/28/23 04:50 Total Counted 100 03/25/23 15:30 Neutrophils % (Manual) 91 % (39-76) H 03/25/23 15:30 Lymphocytes % (Manual) 7 % (13-43) L 03/25/23 15:30 Monocytes % (Manual) 2 % (4-9) L 03/25/23 15:30 Plt Morphology Comment Normal (NORMAL) 03/25/23 15:30 RBC Morphology Normal (NORMAL) 03/25/23 15:30 Sodium 137 mmol/L (136-145) 03/28/23 04:50 Corrected Sodium TNP 03/28/23 04:50 Potassium 4.1 mmol/L (3.5-5.1) 03/28/23 04:50 Chloride 107 mmol/L (98-107) 03/28/23 04:50 Carbon Dioxide 23.4 mmol/L (21-32) 03/28/23 04:50 BUN 12 mg/dL (7-18) 03/28/23 04:50 Creatinine 0.80 mg/dL (0.55-1.02) 03/28/23 04:50 Est GFR (MDRD) Af Amer > 60 (>60) 03/28/23 04:50 Est GFR (MDRD) Non-Af > 60 (>60) 03/28/23 04:50 Glucose 98 mg/dL (65-99) 03/28/23 04:50 Lactic Acid 1.2 mmol/L (0.4-2.0) 03/25/23 19:28 Calcium 8.1 mg/dL (8.5-10.1) L 03/28/23 04:50 Corrected Calcium 9.1 mg/dL (8.5-10.1) 03/28/23 04:50 Magnesium 1.9 mg/dL (2.0-2.9) L 03/28/23 04:50 Total Bilirubin 0.30 mg/dL (0.2-1.0) 03/28/23 04:50 AST 13 Units/L (15-37) L 03/28/23 04:50 ALT 19 Units/L (12-78) 03/28/23 04:50 Alkaline Phosphatase 99 Units/L (46-116) 03/28/23 04:50 Total Protein 6.6 g/dL (6.4-8.2) 03/28/23 04:50 Albumin 2.7 g/dL (3.4-5.0) L 03/28/23 04:50 Globulin 3.9 g/dL (2.5-4.5) 03/28/23 04:50 Albumin/Globulin Ratio 0.7 Ratio (1.1-2.1) L 03/28/23 04:50 Plan (1) Cellulitis of left lower extremity: Status: Acute Plan: IV clindamycin Blood culture pending U/S ordered
[2023-03-28] MEDS ORDERED: PROVENTIL NEB TX 0.083% 2.5MG/ 3ML NEB PRN (16:55)
[2023-03-28] MEDS: PEPCID TAB 40 MG PO SCH (20:29)
[2023-03-28] MEDS: ZOCOR TAB 40 MG PO SCH (20:29)
[2023-03-28] MEDS: MIRALAX POWDER (1 DOSE 17 G) PO SCH (20:32)
[2023-03-28] MEDS: NORCO 5/325 MG TAB PO PRN (21:09)
[2023-03-28] MEDS: DESYREL PO SCH (21:18)
[2023-03-29 06:31] LABS: BASOPHILS % (AUTO) 0.4 % (0.2-1.0); EOSINOPHILS # (AUTO) 0.5 x10^3/uL (0.0-0.2); EOSINOPHILS % (AUTO) 8.4 % (0.9-2.9); HEMATOCRIT 28.7 % (36.0-47.0); HEMOGLOBIN 9.5 g/dL (12.0-16.0); LYMPHOCYTES # (AUTO) 1.3 X10^3/uL (1.3-2.9); LYMPHOCYTES % (AUTO) 23.8 % (21.0-51.0); MEAN CORPUSCULAR HEMOGLOBIN 28.9 pg (27.0-34.0); MEAN CORPUSCULAR HGB CONC 33.3 g/dL (33.0-35.0); MEAN CORPUSCULAR VOLUME 86.8 fL (80.0-100.0); MEAN PLATELET VOLUME 8.1 fL (7.4-11.0); MONOCYTES # (AUTO) 0.6 x10^3/uL (0.3-0.8); MONOCYTES % (AUTO) 10.9 % (0.0-13.0); NEUTROPHILS # (AUTO) 3.1 x10^3/uL (2.2-4.8); NEUTROPHILS % (AUTO) 56.5 % (42.0-75.0); PLATELET COUNT 177 X10^3/uL (150.0-450.0); RED BLOOD COUNT 3.31 X10^6/uL (3.5-5.4); RED CELL DISTRIBUTION WIDTH 14.4 % (11.6-16.5); WHITE BLOOD COUNT 5.4 X10^3/uL (3.6-10.0)
[2023-03-29 07:43] LABS: ALANINE AMINOTRANSFERASE 18 Units/L (12-78); ALBUMIN 2.7 g/dL (3.4-5.0); ALKALINE PHOSPHATASE 95 Units/L (46-116); ASPARTATE AMINO TRANSFERASE 18 Units/L (15-37); BLOOD UREA NITROGEN 14 mg/dL (7-18); CALCIUM 8.3 mg/dL (8.5-10.1); CARBON DIOXIDE 21.4 mmol/L (21-32); CHLORIDE 106 mmol/L (98-107); COR CA(FOR HYPOALB) 9.3 mg/dL (8.5-10.1); CREATININE 0.81 mg/dL (0.55-1.02); GLUCOSE 89 mg/dL (65-99); POTASSIUM 3.9 mmol/L (3.5-5.1); SODIUM 139 mmol/L (136-145); TOTAL PROTEIN 6.6 g/dL (6.4-8.2); eGFR NON BLACK RACES > 60 (>60)
[2023-03-29] MEDS: K-DUR TAB 20 MEQ PO SCH (08:37)
[2023-03-29] MEDS: PLAQUENIL PO SCH ×2 (08:38→20:48)
[2023-03-29] MEDS: ISOSORBIDE DINITRATE PO SCH ×2 (08:38→20:49)
[2023-03-29] MEDS: LYRICA CAP 150 mg PO SCH ×2 (08:39→20:48)
[2023-03-29] MEDS: PLAVIX PO SCH (08:39)
[2023-03-29] MEDS: LASIX PO SCH (08:39)
[2023-03-29] MEDS: PROTONIX TAB 40 MG PO SCH ×2 (08:39→20:47)
[2023-03-29] MEDS: CYMBALTA PO SCH ×2 (08:39→20:48)
[2023-03-29] MEDS: SYNTHROID 75 mcg TAB PO SCH (08:39)
[2023-03-29] MEDS: BUSPAR PO SCH ×2 (08:39→21:03)
[2023-03-29] MEDS: TOPAMAX TAB 100 MG PO SCH ×2 (08:39→20:48)
[2023-03-29] MEDS: ZANAFLEX PO PRN ×2 (08:42→20:49)
[2023-03-29] MEDS: LOVENOX INJ 40 MG SYR SC SCH (08:46)
[2023-03-29] MEDS: NS 1,000 ML IV 1,000 ML IV SCH (09:45)
[2023-03-29] MEDS: NYSTATIN POWDER TOP SCH ×2 (09:45→21:03)
[2023-03-29] MEDS: CLEOCIN 600 MG IV PREMIX 600 MG/50 ML BAG IV SCH ×3 (13:57→22:51)
[2023-03-29] MEDS: NORCO 5/325 MG TAB PO PRN (19:01)
[2023-03-29] MEDS: PEPCID TAB 40 MG PO SCH (20:48)
[2023-03-29] MEDS: ZOCOR TAB 40 MG PO SCH (20:49)
[2023-03-29] MEDS: DESYREL PO SCH (20:49)
[2023-03-29] MEDS: MIRALAX POWDER (1 DOSE 17 G) PO SCH (21:03)
[2023-03-30] MEDS: TYLENOL 325 MG TAB PO PRN ×2 (03:02→22:35)
[2023-03-30] MEDS: CLEOCIN 600 MG IV PREMIX 600 MG/50 ML BAG IV SCH ×3 (05:24→21:04)
[2023-03-30 05:25] LABS: BASOPHILS % (AUTO) 0.5 % (0.2-1.0); EOSINOPHILS # (AUTO) 0.5 x10^3/uL (0.0-0.2); EOSINOPHILS % (AUTO) 9.7 % (0.9-2.9); HEMATOCRIT 29.2 % (36.0-47.0); HEMOGLOBIN 9.7 g/dL (12.0-16.0); LYMPHOCYTES # (AUTO) 1.4 X10^3/uL (1.3-2.9); MEAN CORPUSCULAR HEMOGLOBIN 28.6 pg (27.0-34.0); MEAN CORPUSCULAR HGB CONC 33.1 g/dL (33.0-35.0); MEAN CORPUSCULAR VOLUME 86.4 fL (80.0-100.0); MEAN PLATELET VOLUME 8.4 fL (7.4-11.0); MONOCYTES # (AUTO) 0.7 x10^3/uL (0.3-0.8); MONOCYTES % (AUTO) 12.7 % (0.0-13.0); NEUTROPHILS # (AUTO) 2.7 x10^3/uL (2.2-4.8); NEUTROPHILS % (AUTO) 51.1 % (42.0-75.0); PLATELET COUNT 196 X10^3/uL (150.0-450.0); RED BLOOD COUNT 3.38 X10^6/uL (3.5-5.4); RED CELL DISTRIBUTION WIDTH 14.7 % (11.6-16.5); WHITE BLOOD COUNT 5.2 X10^3/uL (3.6-10.0)
[2023-03-30 05:40] LABS: ALANINE AMINOTRANSFERASE 20 Units/L (12-78); ALBUMIN 2.7 g/dL (3.4-5.0); ALKALINE PHOSPHATASE 89 Units/L (46-116); ASPARTATE AMINO TRANSFERASE 16 Units/L (15-37); BLOOD UREA NITROGEN 20 mg/dL (7-18); CALCIUM 8.1 mg/dL (8.5-10.1); CARBON DIOXIDE 24.7 mmol/L (21-32); CHLORIDE 105 mmol/L (98-107); COR CA(FOR HYPOALB) 9.1 mg/dL (8.5-10.1); CREATININE 0.97 mg/dL (0.55-1.02); GLUCOSE 91 mg/dL (65-99); MAGNESIUM 1.8 mg/dL (2.0-2.9); POTASSIUM 3.7 mmol/L (3.5-5.1); SODIUM 138 mmol/L (136-145); TOTAL PROTEIN 6.4 g/dL (6.4-8.2); eGFR NON BLACK RACES > 60 (>60)
[2023-03-30] MEDS ORDERED: CONSULT PHARMACY - POTASSIUM & MAGNESIUM XX SCH (08:00)
[2023-03-30] MEDS: NYSTATIN POWDER TOP SCH ×2 (09:00→21:04)
[2023-03-30] MEDS: LASIX PO SCH (09:08)
[2023-03-30] MEDS: K-DUR TAB 20 MEQ PO SCH ×2 (09:08→20:40)
[2023-03-30] MEDS: MAG-OX TAB PO SCH ×2 (09:08→20:41)
[2023-03-30] MEDS: PROTONIX TAB 40 MG PO SCH ×2 (09:08→20:41)
[2023-03-30] MEDS: PLAVIX PO SCH (09:08)
[2023-03-30] MEDS: LYRICA CAP 150 mg PO SCH (09:08)
[2023-03-30] MEDS: SYNTHROID 75 mcg TAB PO SCH (09:08)
[2023-03-30] MEDS: TOPAMAX TAB 100 MG PO SCH ×2 (09:08→20:40)
[2023-03-30] MEDS: PLAQUENIL PO SCH ×2 (09:08→20:40)
[2023-03-30] MEDS: CYMBALTA PO SCH ×2 (09:08→20:40)
[2023-03-30] MEDS: LOVENOX INJ 40 MG SYR SC SCH (09:09)
[2023-03-30] MEDS: ISOSORBIDE DINITRATE PO SCH ×2 (09:09→20:41)
[2023-03-30] MEDS: BUSPAR PO SCH ×2 (09:09→20:40)
[2023-03-30] MEDS ORDERED: NEURONTIN CAP 300 MG PO SCH (10:00)
[2023-03-30] MEDS: NS 1,000 ML IV 1,000 ML IV SCH (13:14)
[2023-03-30] MEDS: NORCO 5/325 MG TAB PO PRN (15:04)
[2023-03-30] MEDS: ZANAFLEX PO PRN (15:04)
[2023-03-30] MEDS: PEPCID TAB 40 MG PO SCH (20:40)
[2023-03-30] MEDS: ZOCOR TAB 40 MG PO SCH (20:41)
[2023-03-30] MEDS: DESYREL PO SCH (20:41)
[2023-03-30] MEDS: MIRALAX POWDER (1 DOSE 17 G) PO SCH (21:03)
[2023-03-31] MEDS: NORCO 5/325 MG TAB PO PRN ×2 (04:34→20:16)
[2023-03-31] MEDS: ZANAFLEX PO PRN ×2 (04:34→20:19)
[2023-03-31] MEDS: CLEOCIN 600 MG IV PREMIX 600 MG/50 ML BAG IV SCH ×3 (05:10→21:36)
[2023-03-31 06:45] LABS: BASOPHILS % (AUTO) 0.6 % (0.2-1.0); EOSINOPHILS # (AUTO) 0.5 x10^3/uL (0.0-0.2); EOSINOPHILS % (AUTO) 9.9 % (0.9-2.9); HEMATOCRIT 29.2 % (36.0-47.0); HEMOGLOBIN 9.7 g/dL (12.0-16.0); LYMPHOCYTES # (AUTO) 1.2 X10^3/uL (1.3-2.9); LYMPHOCYTES % (AUTO) 25.6 % (21.0-51.0); MEAN CORPUSCULAR HEMOGLOBIN 28.9 pg (27.0-34.0); MEAN CORPUSCULAR HGB CONC 33.4 g/dL (33.0-35.0); MEAN CORPUSCULAR VOLUME 86.6 fL (80.0-100.0); MEAN PLATELET VOLUME 8.1 fL (7.4-11.0); MONOCYTES # (AUTO) 0.6 x10^3/uL (0.3-0.8); MONOCYTES % (AUTO) 12.2 % (0.0-13.0); NEUTROPHILS # (AUTO) 2.5 x10^3/uL (2.2-4.8); NEUTROPHILS % (AUTO) 51.7 % (42.0-75.0); PLATELET COUNT 204 X10^3/uL (150.0-450.0); RED BLOOD COUNT 3.37 X10^6/uL (3.5-5.4); RED CELL DISTRIBUTION WIDTH 14.2 % (11.6-16.5); WHITE BLOOD COUNT 4.9 X10^3/uL (3.6-10.0)
[2023-03-31 06:51] LABS: ALANINE AMINOTRANSFERASE 19 Units/L (12-78); ALBUMIN 2.7 g/dL (3.4-5.0); ALKALINE PHOSPHATASE 84 Units/L (46-116); ASPARTATE AMINO TRANSFERASE 14 Units/L (15-37); BLOOD UREA NITROGEN 21 mg/dL (7-18); CARBON DIOXIDE 24.6 mmol/L (21-32); CHLORIDE 106 mmol/L (98-107); CREATININE 0.89 mg/dL (0.55-1.02); GLUCOSE 96 mg/dL (65-99); MAGNESIUM 1.9 mg/dL (2.0-2.9); POTASSIUM 3.9 mmol/L (3.5-5.1); SODIUM 138 mmol/L (136-145); TOTAL PROTEIN 6.4 g/dL (6.4-8.2); eGFR NON BLACK RACES > 60 (>60)
[2023-03-31] MEDS: CYMBALTA PO SCH ×2 (09:01→20:17)
[2023-03-31] MEDS: SYNTHROID 75 mcg TAB PO SCH (09:01)
[2023-03-31] MEDS: TOPAMAX TAB 100 MG PO SCH ×2 (09:01→20:17)
[2023-03-31] MEDS: PLAQUENIL PO SCH ×2 (09:01→20:17)
[2023-03-31] MEDS: PLAVIX PO SCH (09:01)
[2023-03-31] MEDS: PROTONIX TAB 40 MG PO SCH ×2 (09:02→20:17)
[2023-03-31] MEDS: LASIX PO SCH (09:02)
[2023-03-31] MEDS: ISOSORBIDE DINITRATE PO SCH ×2 (09:03→20:17)
[2023-03-31] MEDS: LOVENOX INJ 40 MG SYR SC SCH (09:04)
[2023-03-31] MEDS: BUSPAR PO SCH ×2 (09:04→20:17)
[2023-03-31] MEDS: NYSTATIN POWDER TOP SCH ×2 (09:10→20:20)
[2023-03-31] MEDS: MAG-OX TAB PO SCH ×2 (10:58→20:16)
[2023-03-31] MEDS: K-DUR TAB 20 MEQ PO SCH ×2 (10:58→20:16)
[2023-03-31] MEDS: NS 1,000 ML IV 1,000 ML IV SCH (10:59)
[2023-03-31] MEDS: PEPCID TAB 40 MG PO SCH (20:17)
[2023-03-31] MEDS: DESYREL PO SCH (20:17)
[2023-03-31] MEDS: MIRALAX POWDER (1 DOSE 17 G) PO SCH (20:18)
[2023-03-31] MEDS: ZOCOR TAB 40 MG PO SCH (20:18)
[2023-03-31] MEDS: TYLENOL 325 MG TAB PO PRN (23:57)
[2023-04-01] MEDS: CLEOCIN 600 MG IV PREMIX 600 MG/50 ML BAG IV SCH (05:19)
[2023-04-01 05:27] LABS: BASOPHILS % (AUTO) 0.7 % (0.2-1.0); EOSINOPHILS # (AUTO) 0.5 x10^3/uL (0.0-0.2); EOSINOPHILS % (AUTO) 8.6 % (0.9-2.9); HEMATOCRIT 32.5 % (36.0-47.0); HEMOGLOBIN 10.7 g/dL (12.0-16.0); LYMPHOCYTES # (AUTO) 1.7 X10^3/uL (1.3-2.9); MEAN CORPUSCULAR HEMOGLOBIN 28.5 pg (27.0-34.0); MEAN CORPUSCULAR HGB CONC 32.9 g/dL (33.0-35.0); MEAN CORPUSCULAR VOLUME 86.5 fL (80.0-100.0); MONOCYTES # (AUTO) 0.6 x10^3/uL (0.3-0.8); MONOCYTES % (AUTO) 10.1 % (0.0-13.0); NEUTROPHILS # (AUTO) 2.9 x10^3/uL (2.2-4.8); NEUTROPHILS % (AUTO) 50.6 % (42.0-75.0); PLATELET COUNT 266 X10^3/uL (150.0-450.0); RED BLOOD COUNT 3.75 X10^6/uL (3.5-5.4); RED CELL DISTRIBUTION WIDTH 14.8 % (11.6-16.5); WHITE BLOOD COUNT 5.8 X10^3/uL (3.6-10.0)
[2023-04-01 05:44] LABS: ALANINE AMINOTRANSFERASE 24 Units/L (12-78); ALBUMIN 3.2 g/dL (3.4-5.0); ALKALINE PHOSPHATASE 94 Units/L (46-116); ASPARTATE AMINO TRANSFERASE 19 Units/L (15-37); BLOOD UREA NITROGEN 21 mg/dL (7-18); CALCIUM 8.5 mg/dL (8.5-10.1); CHLORIDE 105 mmol/L (98-107); COR CA(FOR HYPOALB) 9.1 mg/dL (8.5-10.1); CREATININE 0.87 mg/dL (0.55-1.02); GLUCOSE 88 mg/dL (65-99); MAGNESIUM 2.1 mg/dL (2.0-2.9); SODIUM 138 mmol/L (136-145); TOTAL PROTEIN 7.2 g/dL (6.4-8.2); eGFR NON BLACK RACES > 60 (>60)
[2023-04-01] MEDS: K-DUR TAB 20 MEQ PO SCH (08:47)
[2023-04-01] MEDS: SYNTHROID 75 mcg TAB PO SCH (08:47)
[2023-04-01] MEDS: CYMBALTA PO SCH (08:47)
[2023-04-01] MEDS: TOPAMAX TAB 100 MG PO SCH (08:47)
[2023-04-01] MEDS: PLAVIX PO SCH (08:47)
[2023-04-01] MEDS: LASIX PO SCH ×2 (08:47→13:33)
[2023-04-01] MEDS: ISOSORBIDE DINITRATE PO SCH (08:47)
[2023-04-01] MEDS: MAG-OX TAB PO SCH (08:48)
[2023-04-01] MEDS: NS 1,000 ML IV 1,000 ML IV SCH (08:48)
[2023-04-01] MEDS: PROTONIX TAB 40 MG PO SCH (08:48)
[2023-04-01] MEDS: LOVENOX INJ 40 MG SYR SC SCH ×2 (08:48→08:52)
[2023-04-01] MEDS: PLAQUENIL PO SCH (08:48)
[2023-04-01] MEDS: NYSTATIN POWDER TOP SCH (08:50)
[2023-04-01] MEDS: BUSPAR PO SCH (08:50)
[2023-04-01] MEDS: ZANAFLEX PO PRN (08:57)
[2023-04-01 10:41] VITALS: RESP 20; O2SAT 99
[2023-04-01 12:45] VITALS: BP 153/74; PULSE 97; TEMP 98.3
== END 2023-04-01 14:00 | disposition home or self-care (01) | DRG 603 ==
LOC: ER 14:17 → MED/SURG 18:29
PROVIDERS: ADMIT Family Medicine; ATTEND Internal Medicine
DX: J44.9 Chronic obstructive pulmonary disease, unspecified; E78.2 Mixed hyperlipidemia; E66.01 Morbid (severe) obesity due to excess calories; L03.116 Cellulitis of left lower limb; I25.10 Atherosclerotic heart disease of native coronary artery without angina pectoris; I10 Essential (primary) hypertension; E83.42 Hypomagnesemia; L97.929 Non-pressure chronic ulcer of unspecified part of left lower leg with unspecified severity; Z79.01 Long term (current) use of anticoagulants; R26.89 Other abnormalities of gait and mobility; Z87.442 Personal history of urinary calculi; F41.8 Other specified anxiety disorders; R60.0 Localized edema